=== PATIENT | male | born 1965 | race Caucasian/White ===

== ENCOUNTER 2016-03-10 16:40 | Emergency (ER) | payer OTHER ==
[2016-03-10 18:22] LABS: Hematocrit 46 % (42-52); Hemoglobin 15.6 g/dl (14.0-18.0); Mean Corpuscular HGB Conc 34 g/dl (31-36); Mean Corpuscular Hemoglobin 28 pg (27-31); Mean Corpuscular Volume 82 fL (80-94); Mean Platelet Volume 7 um3 (7.4-10.4); Red Blood Count 5.53 10^6/ul (4.0-5.4); Red Cell Distribution Width 13 % (10.5-15); White Blood Count 10.3 10^3/ul (3.5-10.8)
[2016-03-10 18:36] LABS: Albumin 4.6 g/dL (3.2-5.2); Calcium 9.4 mg/dL (8.6-10.3); EGFR African American 136.4 (>60); EGFR Non-African American 106.1 (>60); Globulin 2.7 g/dL (2-4); Potassium 4.2 mmol/L (3.5-5.0); Total Bilirubin 0.5 mg/dL (0.2-1.0); Total Protein 7.3 g/dL (6.4-8.9)
[2016-03-10 18:38] LABS: Troponin I 0.01 ng/mL (<0.04)
--- NOTE | 2016-03-10 18:50 | RAD ---
INDICATION: Chest pain. COMPARISON: Comparison is made with a prior x-ray study from November 24, 2015. TECHNIQUE: A portable view of the chest was obtained. FINDINGS: Cardiac and mediastinal contours appear to be within normal limits. The lungs are clear. No pleural effusion is seen. There is a chronic deformity in the left first 2 ribs possibly congenital or posttraumatic. This is unchanged from the prior exam. IMPRESSION: NO EVIDENCE FOR ACUTE DISEASE.
[2016-03-10] MEDS ORDERED: oxyCODONE/Acetamin 5/325 MG* TAB PO ONE (20:00)
--- NOTE | 2016-03-10 20:05 | ED ---
Ever Baxter Adam, scribed for Will Centeno MD on 03/10/16 at 1845 . HPI Chest Pain - HPI Summary HPI Summary: Pt is a 50 year old male presenting with CP. He describes it as a pinching pain in the left anterior region of his chest that radiates down his left arm. It set on 4 days ago at approximately 22:00 and it has been constant since then. Pt also c/o nausea. He saw his PCP Joel Maurice this afternoon and she sent him here. Pt has had CP in the past but it typically resolves within 1-3 hours and it has never radiated down his arm before, as it is this time. - History of Current Complaint Chief Complaint: EDChestWallPain Time Seen by Provider: 03/10/16 17:39 Hx Obtained From: Patient Onset/Duration: Started Days Ago, Atraumatic, Still Present Timing: Constant, Lasting Days Initial Severity: Moderate Current Severity: Moderate Pain Intensity: 9 Pain Scale Used: 0-10 Numeric Chest Pain Location: Left Anterior Chest Pain Radiates: Yes Chest Pain Radiates To:: Arm - Left Character: Other: - Pinching Aggravating Factor(s): Nothing Alleviating Factor(s): Nothing Associated Signs and Symptoms: Positive: Nausea - Allergy/Home Medications Allergies/Adverse Reactions: Allergies Allergy/AdvReac Type Severity Reaction Status Date / Time Sulfa Antibiotics Allergy Itching Verified 02/09/16 10:22 PMH/Surg Hx/FS Hx/Imm Hx Endocrine/Hematology History: Denies: Hx Anticoagulant Therapy, Hx Diabetes, Hx Thyroid Disease Cardiovascular History: Reports: Hx Rheumatic Fever - A CHILD Denies: Hx Congestive Heart Failure, Hx Deep Vein Thrombosis, Hx Hypertension , Hx Myocardial Infarction, Hx Pacemaker/ICD Respiratory History: Reports: Other Respiratory Problems/Disorders - HX OF PNEUMONIA 10-12 YEARS AGO Denies: Hx Asthma, Hx Chronic Obstructive Pulmonary Disease (COPD), Hx Lung Cancer, Hx Pneumonia, Hx Pulmonary Embolism GI History: Reports: Hx Gastroesophageal Reflux Disease, Other GI Disorders - DIFFICULTY SWALLOWING R/T SCAR TISSUE - NEEDS SOFT FOOD; DIVERTICULITIS Denies: Hx Gall Bladder Disease, Hx Gastrointestinal Bleed, Hx Ulcer, Hx Urosepsis History: Reports: Other Problems/Disorders - STATED PAIN IN PROSTATE AREA Denies: Hx Dialysis, Hx Kidney Stones, Hx Renal Disease Musculoskeletal History: Reports: Hx Arthritis Sensory History: Reports: Hx Contacts or Glasses - READING GLASSES Denies: Hx Hearing Aid Opthamlomology History: Reports: Hx Contacts or Glasses - READING GLASSES Neurological History: Reports: Other Neuro Impairments/Disorders - FEELING OF PRESSURE IN HEAD Denies: Hx Dementia, Hx Migraine, Hx Seizures, Hx Transient Ischemic Attacks (TIA) Psychiatric History: Reports: Hx Anxiety Denies: Hx Depression, Hx Panic Disorder, Hx Schizophrenia, Hx Bipolar Disorder - Cancer History Cancer Type, Location and Year: MELAN[facility] - Surgical History Surgery Procedure, Year, and Place: CLEFT PALATE REPAIR. 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 APPY. UMBILICAL HERNIA REPAIR Hx Anesthesia Reactions: No - Immunization History Date of Tetanus Vaccine: UTD Date of Influenza Vaccine: unk Infectious Disease History: No Infectious Disease History: Denies: Hx Clostridium Difficile, Hx Hepatitis, Hx Human Immunodeficiency Virus (HIV), Hx of Known/Suspected MRSA, Hx Shingles, Hx Tuberculosis, Hx Known/ Suspected VRE, Hx Known/Suspected VRSA, History Other Infectious Disease, Traveled Outside the [place] in Last 30 Days - Family History Known Family History: Positive: Cardiac Disease, Hypertension - Social History Occupation: Unemployed Lives: Alone Alcohol Use: None Hx Substance Use: No Substance Use Type: Reports: None Hx Tobacco Use: No Smoking Status (MU): Never Smoked Tobacco Have You Smoked in the Last Year: No Review of Systems Positive: Chest Pain Positive: Nausea Positive: Myalgia - Left arm All Other Systems Reviewed And Are Negative: Yes Physical Exam Triage Information Reviewed: Yes Vital Signs On Initial Exam: Initial Vitals Temp Pulse Resp BP Pulse Ox 97.6 F 103 24 175/115 97 03/10/16 16:42 03/10/16 16:42 03/10/16 16:42 03/10/16 16:42 03/10/16 16:42 Vital Signs Reviewed: Yes Appearance: Positive: Well-Appearing, No Pain Distress Skin: Positive: Warm, Skin Color Reflects Adequate Perfusion, Dry Head/Face: Positive: Normal Head/Face Inspection Eyes: Positive: Normal ENT: Positive: Normal ENT inspection Neck: Positive: Supple, Nontender Respiratory/Lung Sounds: Positive: Clear to Auscultation, Breath Sounds Present Cardiovascular: Positive: RRR Abdomen Description: Positive: Nontender, Soft Bowel Sounds: Positive: Present Musculoskeletal: Positive: Normal Neurological: Positive: Normal Psychiatric: Positive: Normal, Affect/Mood Appropriate Diagnostics - Vital Signs Vital Signs Temp Pulse Resp BP Pulse Ox 03/10/16 16:42 97.6 F 103 24 175/115 97 - Laboratory Lab Results: Lab Results 03/10/16 03/10/16 03/10/16 Range/Units 18:06 18:06 18:06 WBC 10.3 (3.5-10.8) 10^3/ul RBC 5.53 H (4.0-5.4) 10^6/ul Hgb 15.6 (14.0-18.0) g/dl Hct 46 (42-52) % MCV 82 (80-94) fL MCH 28 (27-31) pg MCHC 34 (31-36) g/dl RDW 13 (10.5-15) % Plt Count 269 (150-450) 10^3/ul MPV 7 L (7.4-10.4) um3 Neut % (Auto) 54.0 (38-83) % Lymph % (Auto) 25.1 (25-47) % Pettis % (Auto) 7.0 (1-9) % Eos % (Auto) 13.1 H (0-6) % Baso % (Auto) 0.8 (0-2) % Absolute Neuts (auto) 5.5 (1.5-7.7) 10^3/ul Absolute Lymphs (auto) 2.6 (1.0-4.8) 10^3/ul Absolute Monos (auto) 0.7 (0-0.8) 10^3/ul Absolute Eos (auto) 1.3 H (0-0.6) 10^3/ul Absolute Basos (auto) 0.1 (0-0.2) 10^3/ul Absolute Nucleated RBC 0.01 10^3/ul Nucleated RBC % 0.1 D-Dimer, Quantitative (Less Than 230) ng/mL Sodium 134 (133-145) mmol/L Potassium 4.2 (3.5-5.0) mmol/L Chloride 102 (101-111) mmol/L Carbon Dioxide 25 (22-32) mmol/L Anion Gap 7 (2-11) mmol/L BUN 10 (6-24) mg/dL Creatinine 0.77 (0.67-1.17) mg/dL Est GFR ( Amer) 136.4 (>60) Est GFR (Non-Af Amer) 106.1 (>60) BUN/Creatinine Ratio 13.0 (8-20) Glucose 134 H (70-100) mg/dL Lactic Acid 2.3 H* (0.5-2.0) mmol/L Calcium 9.4 (8.6-10.3) mg/dL Total Bilirubin 0.50 (0.2-1.0) mg/dL AST 22 (13-39) U/L ALT 29 (7-52) U/L Alkaline Phosphatase 60 (34-104) U/L Troponin I 0.01 (<0.04) ng/mL Total Protein 7.3 (6.4-8.9) g/dL Albumin 4.6 (3.2-5.2) g/dL Globulin 2.7 (2-4) g/dL Albumin/Globulin Ratio 1.7 (1-3) // Range/Units 18:06 WBC (3.5-10.8) 10^3/ul RBC (4.0-5.4) 10^6/ul Hgb (14.0-18.0) g/dl Hct (42-52) % MCV (80-94) fL MCH (27-31) pg MCHC (31-36) g/dl RDW (10.5-15) % Plt Count (150-450) 10^3/ul MPV (7.4-10.4) um3 Neut % (Auto) (38-83) % Lymph % (Auto) (25-47) % Pettis % (Auto) (1-9) % Eos % (Auto) (0-6) % Baso % (Auto) (0-2) % Absolute Neuts (auto) (1.5-7.7) 10^3/ul Absolute Lymphs (auto) (1.0-4.8) 10^3/ul Absolute Monos (auto) (0-0.8) 10^3/ul Absolute Eos (auto) (0-0.6) 10^3/ul Absolute Basos (auto) (0-0.2) 10^3/ul Absolute Nucleated RBC 10^3/ul Nucleated RBC % D-Dimer, Quantitative < 200 (Less Than 230) ng/mL Sodium (133-145) mmol/L Potassium (3.5-5.0) mmol/L Chloride (101-111) mmol/L Carbon Dioxide (22-32) mmol/L Anion Gap (2-11) mmol/L BUN (6-24) mg/dL Creatinine (0.67-1.17) mg/dL Est GFR ( Amer) (>60) Est GFR (Non-Af Amer) (>60) BUN/Creatinine Ratio (8-20) Glucose (70-100) mg/dL Lactic Acid (0.5-2.0) mmol/L Calcium (8.6-10.3) mg/dL Total Bilirubin (0.2-1.0) mg/dL AST (13-39) U/L ALT (7-52) U/L Alkaline Phosphatase (34-104) U/L Troponin I (<0.04) ng/mL Total Protein (6.4-8.9) g/dL Albumin (3.2-5.2) g/dL Globulin (2-4) g/dL Albumin/Globulin Ratio (1-3) Result Diagrams: 03/10/16 18:06 03/10/16 18:06 Lab Statement: Any lab studies that have been ordered have been reviewed, and results considered in the medical decision making process. - Radiology CXR Radiology Interpretation Completed By: Radiologist - IMPRESSION: NO EVIDENCE FOR ACUTE DISEASE. - EKG 16:45 Cardiac Rate: NL - 89 BPM EKG Rhythm: Sinus Rhythm - Normal - Additional Comments Diagnostic Additional Comments: Lactic Acid - 2.3 Troponin I - 0.01 Chest Pain Course/Dx - Course Course Of Treatment: Mr. Castaneda presented with a chest pain that was atypical and his W/U was negative. He has a lot of chronc pain problems and I will treat him symptomatically. - Diagnoses Provider Diagnoses: Chest wall pain Discharge - Discharge Plan Condition: Stable Disposition: HOME Prescriptions: oxyCODONE/Acetamin 5/325 MG* [Percocet 5/325 TAB*] 1 tab PO Q6H PRN #20 tab MDD 4 PRN Reason: Pain Patient Education Materials: Chest Wall Pain (ED) Referrals: Joel Maurice, ACCOUNT SERVICE ASSOCIATE [Primary Care Provider] - Additional Instructions: Follow up with Joel Maurice. The documentation as recorded by the Ever ocampo Adam accurately reflects the service I personally performed and the decisions made by me, Will Centeno MD.
[2016-03-10 20:10] VITALS: BP 157/101
== END 2016-03-10 20:09 | disposition home or self-care (01) ==
LOC: ED 16:40
DX: R07.89 Other chest pain (principal); R11.0 Nausea; M79.602 Pain in left arm
CPT/HCPCS: 36415; 71010; 80053; 83605; 84484; 85025; 85379; 93005; 99283; A9270-GY

== ENCOUNTER 2016-03-26 08:21 | Emergency (ER) | payer OTHER ==
[2016-03-26 09:08] VITALS: BP 170/104
--- NOTE | 2016-03-26 09:52 | UC ---
Respiratory Complaint HPI - HPI Summary HPI Summary: The patient comes in today for: 1. Sinus pressure: Onset: 2 days ago. Palliative/provocative: Nothing makes his pressure better or worse. Quality: Pressure. Region: Frontal and maxillary sinus areas. Severity: Time: Constant. "10/19" Associated symptoms: Rhinitis: "I can't blow my nose due to the cleft palate." NO discharge. Cough: None. Fevers: None. Upper tooth pain: Present. * - History of Current Complaint Stated Complaint: SINUS/EARS COMPLAINT Time Seen by Provider: 03/26/16 08:52 Hx Obtained From: Patient - Allergies/Home Medications Allergies/Adverse Reactions: Allergies Allergy/AdvReac Type Severity Reaction Status Date / Time Sulfa Antibiotics Allergy Itching Verified 03/26/16 08:56 Home Medications: Home Medications Duloxetine HCl 60 mg PO DAILY PRN 03/26/16 [History Confirmed 03/26/16] Ibuprofen TAB* [Advil TAB*] 600 mg PO Q6H PRN 03/26/16 [History Confirmed ] Nortriptyline CAP* [Nortriptylline CAP*] 10 mg PO BEDTIME 03/26/16 [History Confirmed 03/26/16] Pantoprazole TAB (NF) [Protonix TAB (NF)] 40 mg PO DAILY 03/26/16 [History Confirmed 03/26/16] Polyethylene Glycol 3350* [Miralax*] 17 gm PO DAILY 03/26/16 [History Confirmed 03/26/16] Pregabalin CAP(*) [Lyrica CAP(*)] 75 mg PO BID 03/26/16 [History Confirmed 03/26] [id number]-Ve W/APAP [Cold & Flu Relief ... 60-12.5-30-1000 mg/30Ml] 1 liq PO PRN 03/26/16 [History] Senna TAB* [Senokot TAB*] 1 tab PO DAILY 03/26/16 [History Confirmed 03/26/16] Tamsulosin CAP* [Flomax CAP*] 0.4 mg PO DAILY 03/26/16 [History Confirmed ] Tizanidine HCl 4 mg PO TID PRN 03/26/16 [History Confirmed 03/26/16] hydrOXYzine HCL TAB* [Atarax TAB*] 10 mg PO TID PRN 03/26/16 [History Confirmed 03/26/16] metFORMIN* [Glucophage*] 500 mg PO BID 03/26/16 [History Confirmed 03/26/16] PMH/Surg Hx/FS Hx/Imm Hx Previously Healthy: No - Neck pain, low back pain, colon polyps, melanoma tumor left eye 9 years ago Endocrine History Of: Reports: Diabetes Denies: Thyroid Disease, Hyperthyroidism, Hypothyroidism, Dyslipidemia Cardiovascular History Of: Denies: Cardiac Disorders, Hypertension, Pacemaker/ICD, Myocardial Infarction , Congestive Heart Failure, Atrial Fibrillation, Deep Vein Thrombosis, Bleeding Disorders Respiratory History Of: Denies: COPD, Asthma, Bronchitis, Pneumonia, Pulmonary Embolism GI/ History Of: Reports: Gastroesophageal Reflux, Ulcer Denies: Gastrointestinal Bleed, Gall Bladder Disease, Kidney Stones, Diverticulitis, Renal Disease, Urosepsis Neurological History Of: Denies: TIA, CVA, Dementia, Seizures, Migraine Psychological History Of: Reports: Anxiety, Post Traumatic Stress Disorder Denies: Depression, Bipolar Disorder, Schizophrenia Cancer History Of: Denies: Lung Cancer, Colorectal Cancer, Breast Cancer, Prostate Cancer, Cervical Cancer Other History Of: Negative For: HIV, Hepatitis B, Hepatitis C, Anticoagulant Therapy - Surgical History Surgical History: Yes Surgery Procedure, Year, and Place: CLEFT PALATE REPAIR. 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 APPY. UMBILICAL HERNIA REPAIR. COLONOSCOY WITH POLOP REMOVA - Family History Known Family History: Positive: Cardiac Disease, Hypertension - Social History Occupation: Unemployed Alcohol Use: None Substance Use Type: None Smoking Status (MU): Never Smoked Tobacco Have You Smoked in the Last Year: No - Immunization History Most Recent Influenza Vaccination: NEVER GETS Most Recent Tetanus Shot: UTD Review of Systems Constitutional: Negative Skin: Negative Eyes: Negative ENT: Sore Throat Respiratory: Negative Cardiovascular: Negative Gastrointestinal: Negative Genitourinary: Negative All Other Systems Reviewed And Are Negative: Yes Physical Exam Triage Information Reviewed: Yes Appearance: Well-Appearing, Well-Nourished, Pain Distress - He is slow in movement onto the exam table, but he states that this is his mindy. Vital Signs: Initial Vital Signs Temp 98.4 F 03/26/16 08:59 Pulse 102 03/26/16 08:59 Resp 20 03/26/16 08:59 BP 170/104 03/26/16 08:59 Pulse Ox 96 03/26/16 08:59 Repeat: PUlse: 100 BP: 150/100, left arm, sitting, with large cuff. Vital Signs Reviewed: Yes Eyes: Positive: Conjunctiva Clear ENT: Positive: Normal ENT inspection. Negative: Pharyngeal erythema, Nasal congestion, Nasal drainage, TM bulging, TM dull, TM red, Tonsillar swelling, Tonsillar exudate Dental: Negative: Gross Decay/Caries @, Dental Fracture @ Neck: Positive: Supple, Nontender, No Lymphadenopathy. Negative: Nuchal Rigidity Respiratory: Positive: Lungs clear, No respiratory distress, No accessory muscle use. Negative: Crackles, Wheezing Cardiovascular: Positive: RRR, No Murmur Abdomen Description: Positive: Nontender, No Organomegaly, Soft. Negative: Distended, Guarding Musculoskeletal: Positive: Strength Intact, Other: - He has some psychomotor slowing and guarding.. Negative: Edema @ Neurological: Positive: Alert, Muscle Tone Normal Psychological: Positive: Age Appropriate Behavior, Consolable Skin: Negative: rashes, breakdown UC Diagnostic Evaluation - Laboratory O2 Sat by Pulse Oximetry: 96 Respiratory Course/Dx - Differential Dx/Diagnosis Differential Diagnosis/HQI/PQRI: Bronchitis, Laryngitis, Sinusitis Provider Diagnoses: Sinusitis Discharge - Discharge Plan Condition: Stable Disposition: HOME Patient Education Materials: Sinusitis (ED) Referrals: Joel Maurice NP [Primary Care Provider] - 1 Week (Please see your primary care provider in about a week to see how well you are doing. If you get worse, please be seen sooner.)
== END 2016-03-26 10:23 | disposition home or self-care (01) ==
LOC: UCCORT 08:21
DX: J01.00 Acute maxillary sinusitis, unspecified (principal); J01.10 Acute frontal sinusitis, unspecified; Z88.2 Allergy status to sulfonamides
CPT/HCPCS: 99212; G0463

== ENCOUNTER 2016-04-09 08:58 | Emergency (ER) | payer OTHER ==
[2016-04-09] MEDS ORDERED: oxyCODONE/Acetamin 5/325 MG* TAB PO ONE (09:07)
[2016-04-09] MEDS ORDERED: Ketorolac INJ* 60 MG/2 ML VIAL IM ONE (10:56)
[2016-04-09 13:02] VITALS: BP 156/91
--- NOTE | 2016-04-19 17:52 | ED ---
marina Baxter Timothy, scribed for Román Saleem MD on 04/09/16 at 0933 . Back Pain - HPI Summary HPI Summary: Humberto Mcdowell is a 50 yo male presenting to [facility] with 10/10 back pain coming from radiology after his pain began during a CT scan. He states he injured it a long time ago, and now he is in a lot of pain. Pt states he was lying on his stomach and was getting an XR, and his back began to hurt. He is currently on an unknown medication for his back pain. He states he has not lost control of his bladder or bowels. He states he has tingling bilaterally in his lower extremities. He has been Dx with arthritis and bulged disk around his hip bones. His MHx includes rheumatic fever, arthritis, pneumonia, GERD, ulcer, diverticulitis, herniated disk in his neck, DM, anxiety, and shingles. - History of Current Complaint Stated Complaint: BACK PAIN COMMING FROM RAD Time Seen by Provider: 04/09/16 09:02 Hx Obtained From: Patient Onset/Duration: Sudden Onset, Lasting Minutes, Still Present Onset/Duration: Started Minutes Ago, Still Present Timing: Constant Back Pain Location: Is Discrete @ - lower back Severity Initially: Moderate Severity Currently: Moderate Pain Intensity: 10 Pain Scale Used: 0-10 Numeric Aggravating Symptom(s): Movement, Lifting, Bending, Walking Alleviating Symptom(s): Rest Associated Signs And Symptoms: Positive: Tingling, Pain with Weight Bearing. Negative: Abdominal Pain, Bladder Incontinence, Bowel Incontinence - Allergies/Home Medications Allergies/Adverse Reactions: Allergies Allergy/AdvReac Type Severity Reaction Status Date / Time Sulfa Antibiotics Allergy Itching Verified 03/26/16 08:56 PMH/Surg Hx/FS Hx/Imm Hx Endocrine/Hematology History: Reports: Hx Diabetes Denies: Hx Anticoagulant Therapy, Hx Thyroid Disease Cardiovascular History: Reports: Hx Rheumatic Fever - A CHILD Denies: Hx Congestive Heart Failure, Hx Deep Vein Thrombosis, Hx Hypertension , Hx Myocardial Infarction, Hx Pacemaker/ICD Respiratory History: Reports: Other Respiratory Problems/Disorders - HX OF PNEUMONIA 10-12 YEARS AGO Denies: Hx Asthma, Hx Chronic Obstructive Pulmonary Disease (COPD), Hx Lung Cancer, Hx Pneumonia, Hx Pulmonary Embolism GI History: Reports: Hx Gastroesophageal Reflux Disease, Hx Ulcer, Other GI Disorders - DIFFICULTY SWALLOWING R/T SCAR TISSUE - NEEDS SOFT FOOD; DIVERTICULITIS Denies: Hx Gall Bladder Disease, Hx Gastrointestinal Bleed, Hx Urosepsis History: Reports: Other Problems/Disorders - STATED PAIN IN PROSTATE AREA Denies: Hx Dialysis, Hx Kidney Stones, Hx Renal Disease Musculoskeletal History: Reports: Hx Arthritis Sensory History: Reports: Hx Contacts or Glasses - READING GLASSES Denies: Hx Hearing Aid Opthamlomology History: Reports: Hx Contacts or Glasses - READING GLASSES Neurological History: Reports: Other Neuro Impairments/Disorders - FEELING OF PRESSURE IN HEAD Denies: Hx Dementia, Hx Migraine, Hx Seizures, Hx Transient Ischemic Attacks (TIA) Psychiatric History: Reports: Hx Anxiety Denies: Hx Depression, Hx Panic Disorder, Hx Schizophrenia, Hx Bipolar Disorder - Cancer History Cancer Type, Location and Year: MELANOMA - Surgical History Surgery Procedure, Year, and Place: CLEFT PALATE REPAIR. 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 APPY. UMBILICAL HERNIA REPAIR. COLONOSCOY WITH POLOP REMOVA Hx Anesthesia Reactions: No - Immunization History Date of Tetanus Vaccine: UTD Date of Influenza Vaccine: unk Infectious Disease History: No Infectious Disease History: Reports: Hx Shingles Denies: Hx Clostridium Difficile, Hx Hepatitis, Hx Human Immunodeficiency Virus (HIV), Hx of Known/Suspected MRSA, Hx Tuberculosis, Hx Known/Suspected VRE , Hx Known/Suspected VRSA, History Other Infectious Disease, Traveled Outside the [place] in Last 30 Days - Family History Known Family History: Positive: Cardiac Disease, Hypertension - Social History Alcohol Use: None Hx Substance Use: No Substance Use Type: Reports: None Hx Tobacco Use: No Smoking Status (MU): Never Smoked Tobacco Have You Smoked in the Last Year: No Review of Systems Constitutional: Negative Negative: Fever, Skin Diaphoresis Eyes: Negative Negative: Other - eye redness ENT: Negative Negative: Sore Throat Cardiovascular: Negative Negative: Chest Pain Respiratory: Negative Negative: Shortness Of Breath, Cough Gastrointestinal: Negative Negative: Abdominal Pain, Vomiting, Nausea Genitourinary: Negative Negative: dysuria, hematuria, incontinence Musculoskeletal: Other - low back pain Skin: Negative Negative: Rash Positive: Paresthesia - in lower extremities Psychological: Normal All Other Systems Reviewed And Are Negative: Yes Physical Exam - Summary Physical Exam Summary: Constitutional: Well-developed, Well-nourished, Alert. (-) Distressed Skin: Warm, Dry HENT: Normocephalic; Atraumatic Eyes: Conjunctiva normal Neck: Musculoskeletal ROM normal neck. (-) JVD, (-) Stridor, (-) Tracheal deviation Cardio: Rhythm regular, rate normal, Heart sounds normal; Intact distal pulses; The pedal pulses are 2+ and symmetric. Radial pulses are 2+ and symmetric. (-) Murmur Pulmonary/Chest wall: Effort normal. (-) Respiratory distress, (-) Wheezes, (-) Rales Abd: Soft, (-) Tenderness, (-) Distension, (-) Guarding, (-) Rebound Musculoskeletal: (-) Edema. Unable to bilateral straight leg raise secondary to pain. Crying out in pain with light touches to feet. Lymph: (-) Cervical adenopathy Neuro: Alert, Oriented x3 Psych: Mood and affect Normal Triage Information Reviewed: Yes Vital Signs On Initial Exam: Initial Vitals Temp Pulse Resp BP Pulse Ox 97.7 F 89 16 159/108 98 04/09/16 09:09 04/09/16 09:09 04/09/16 09:09 04/09/16 09:09 04/09/16 09:09 Vital Signs Reviewed: Yes Diagnostics - Vital Signs Vital Signs Temp Pulse Resp BP Pulse Ox 04/09/16 09:09 97.7 F 89 16 159/108 98 - Laboratory Lab Statement: Any lab studies that have been ordered have been reviewed, and results considered in the medical decision making process. Re-Evaluation - Re-Evaluation First Eval Re-Evaluation Time: 12:52 Change: Improved Comment: Pt is ambulatory and not requesting narcotic medication for pain control. He is agreeable to be discharged. Back Pain Course/Dx - Course Assessment/Plan: Humberto Castaneda is a 50 yo male presenting to [facility] with intense lower back pain. After clinical examination, he will be discharged home with sciatica and appropriate instructions. - Diagnoses Provider Diagnoses: Sciatica Discharge - Discharge Plan Condition: Stable Disposition: HOME Patient Education Materials: Sciatica (ED) Referrals: Joel Maurice OUTBOARD TECHNICIAN [Primary Care Provider] - 2 Days Additional Instructions: Please follow up with your primary care physician regarding your visit to the emergency department today. Return to the emergency department with any new or recurring symptoms. The documentation as recorded by the marina ocampo Timothy accurately reflects the service I personally performed and the decisions made by me, Román Saleem MD.
== END 2016-04-09 13:00 | disposition home or self-care (01) ==
LOC: ED 08:58
DX: M54.30 Sciatica, unspecified side (principal); M54.9 Dorsalgia, unspecified
CPT/HCPCS: 96372; 99282; A9270-GY; J1885

== ENCOUNTER 2016-04-10 11:07 | Emergency (ER) | payer OTHER ==
--- NOTE | 2016-04-10 11:39 | UC ---
Back Pain HPI - HPI Summary HPI Summary: Long history of back and cervical disk disease, stemming from old work injury in 1999, and more recent cervical spine injury. He had an exacerbation of pain yesterday while lying on his back having a gastric emptying study done, and was assessed at [facility], discharged after pain resolved with injection of toradol and percocet. He did ok until about 5 am, and has had increasing pain in the low back since that time, along with worsening pain in the left upper chest which has previously been diagnosed as chest wall pain. He arrived her distressed and writhing with pain, near tears. Noted to be hypertensive and tachycardic, with a known history of hypertension. Oxygen saturations are ok. History is difficult to obtain due to his level of distress, grimacing and crying out. - History of Current Complaint Stated Complaint: CHEST WALL/LOWER BACK PAIN Time Seen by Provider: 04/10/16 11:32 Hx Obtained From: Patient Onset/Duration: Gradual Onset, Lasting Days - 2 Timing: Constant Severity Initially: Severe Pain Intensity: 10 Back Pain: Is Diffuse Character: Throbbing, Spasmodic Aggravating: Movement Alleviating: Nothing Associated Signs And Symptoms: Negative: Bladder Incontinence, Bowel Incontinence - Allergies/Home Medications Allergies/Adverse Reactions: Allergies Allergy/AdvReac Type Severity Reaction Status Date / Time Sulfa Antibiotics Allergy Itching Verified 03/26/16 08:56 Home Medications: Home Medications Ergocalciferol [Vitamin D2] 2,000 unit PO DAILY 04/10/16 [History Confirmed 03/28] Steroid Inhaler 2 puff PO BID 04/10/16 [History] PMH/Surg Hx/FS Hx/Imm Hx - Additional Past Medical History Additional PMH: left eye melanoma Endocrine History Of: Reports: Diabetes Denies: Thyroid Disease, Hyperthyroidism, Hypothyroidism, Dyslipidemia Cardiovascular History Of: Denies: Cardiac Disorders, Hypertension, Pacemaker/ICD, Myocardial Infarction , Congestive Heart Failure, Atrial Fibrillation, Deep Vein Thrombosis, Bleeding Disorders Respiratory History Of: Denies: COPD, Asthma, Bronchitis, Pneumonia, Pulmonary Embolism GI/ History Of: Reports: Gastroesophageal Reflux, Ulcer Denies: Gastrointestinal Bleed, Gall Bladder Disease, Kidney Stones, Diverticulitis, Renal Disease, Urosepsis Neurological History Of: Denies: TIA, CVA, Dementia, Seizures, Migraine Psychological History Of: Reports: Anxiety, Post Traumatic Stress Disorder Denies: Depression, Bipolar Disorder, Schizophrenia Cancer History Of: Denies: Lung Cancer, Colorectal Cancer, Breast Cancer, Prostate Cancer, Cervical Cancer Other History Of: Negative For: HIV, Hepatitis B, Hepatitis C, Anticoagulant Therapy - Surgical History Surgical History: Yes Surgery Procedure, Year, and Place: CLEFT PALATE REPAIR. 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 APPY. UMBILICAL HERNIA REPAIR. COLONOSCOY WITH POLOP REMOVA - Family History Known Family History: Positive: Cardiac Disease, Hypertension - Social History Occupation: Disabled Lives: With Family - lives with 8 year son, states that he has good support. Alcohol Use: None Substance Use Type: None Smoking Status (MU): Never Smoked Tobacco Have You Smoked in the Last Year: No - Immunization History Most Recent Influenza Vaccination: NEVER GETS Most Recent Tetanus Shot: UTD Review of Systems Constitutional: Fatigue Respiratory: Cough Cardiovascular: Chest Pain - compared ECG from 02/25, also tachycardic. Gastrointestinal: Other - normal gastric emptying study yesterday. Difficulty with stool passage, but when pain controlled he can pass stool. also has eosinophilic esophagitis. Psychological: Anxious All Other Systems Reviewed And Are Negative: Yes Physical Exam Triage Information Reviewed: Yes Appearance: Pain Distress - grimacing and writhing on initial assessment., Obese Eye Exam: Normal ENT: Positive: Normal ENT inspection Neck: Positive: Supple Respiratory: Positive: Lungs clear, Normal breath sounds Cardiovascular: Positive: RRR, No Murmur Abdomen Description: Positive: Soft, Distended Bowel Sounds: Positive: Present Musculoskeletal: Positive: Other: - antalgic gait. No leg weakness. Neurological: Positive: Alert, Muscle Tone Normal Psychological: Positive: Other: - anxious Skin Exam: Normal Back Pain Course/Dx - Course Course Of Treatment: uncontrolled back pain. tachycardia secondary to pain. - Differential Dx/Diagnosis Differential Diagnosis/HQI/PQRI: Cauda Equina Syndrome, Compressive Cord Syndrome, Strain Provider Diagnoses: lumbar and cervical disk disease. Chronic pain syndrome. Discharge - Discharge Plan Condition: Stable Disposition: HOME Patient Education Materials: Chronic Pain (ED) Additional Instructions: You have been given toradol and a single dose of lorazepam to help with muscle spasm. You have follow up with Joel Josafat tomorrow, and will review the events of the past several days with her. If you have further pain, please go to the emergency room, as further work up would be required.
[2016-04-10] MEDS ORDERED: Ketorolac INJ* 60 MG/2 ML VIAL IM ONE (12:18)
[2016-04-10] MEDS ORDERED: LORazepam TAB(*) 1 MG PO ONE (12:19)
[2016-04-10 13:15] VITALS: BP 175/105
== END 2016-04-10 13:28 | disposition home or self-care (01) ==
LOC: UCCORT 11:07
DX: M51.36 Other intervertebral disc degeneration, lumbar region (principal); M50.30 Other cervical disc degeneration, unspecified cervical region; G89.4 Chronic pain syndrome; Z88.2 Allergy status to sulfonamides; R00.0 Tachycardia, unspecified
CPT/HCPCS: 93005; 96372; 99212; A9270-GY; G0463; J1885

== ENCOUNTER 2016-05-10 09:37 | Emergency (ER) | payer OTHER ==
[2016-05-10 10:10] VITALS: BP 130/68
--- NOTE | 2016-05-10 10:16 | UC ---
Bite Injury/Animal HPI - HPI Summary HPI Summary: 50 male presents with complaints of a tick bite that he believes occurred yesterday when working on his car outside. Patient states he just had a physical at his primary care doctor on Thursday so he knows the tick bite occurred after that. Denies bulls eye rash, admits to some nausea and feeling achey. Patient has had many incidents of tick bites that he gets similar symptoms from. Denies any pain, neurological symptoms, arthritis, cranial nerve palsy, carditis. Admits to redness around the tick. He denies any tick bites on the rest of his body. - History of Current Complaint Chief Complaint: UCGeneralIllness Stated Complaint: TICK-LEFT SHOULDER Time Seen by Provider: 05/10/16 10:15 Hx Obtained From: Patient Severity Currently: None Pain Intensity: 0 Pain Scale Used: 0-10 Numeric Onset/Duration: Sudden Onset Type of Bite: Wild Animal - tick bite Associated Signs And Symptoms: Positive: Erythema Animal Available for Observation: Yes - Allergies/Home Medications Allergies/Adverse Reactions: Allergies Allergy/AdvReac Type Severity Reaction Status Date / Time Sulfa Antibiotics Allergy Itching Verified 05/10/16 10:00 PMH/Surg Hx/FS Hx/Imm Hx Endocrine History Of: Reports: Diabetes Denies: Thyroid Disease, Hyperthyroidism, Hypothyroidism, Dyslipidemia Cardiovascular History Of: Reports: Hypertension Denies: Cardiac Disorders, Pacemaker/ICD, Myocardial Infarction, Congestive Heart Failure, Atrial Fibrillation, Deep Vein Thrombosis, Bleeding Disorders Respiratory History Of: Denies: COPD, Asthma, Bronchitis, Pneumonia, Pulmonary Embolism GI/ History Of: Reports: Gastroesophageal Reflux, Ulcer Denies: Gastrointestinal Bleed, Gall Bladder Disease, Kidney Stones, Diverticulitis, Renal Disease, Urosepsis Neurological History Of: Denies: TIA, CVA, Dementia, Seizures, Migraine Psychological History Of: Reports: Anxiety, Post Traumatic Stress Disorder Denies: Depression, Bipolar Disorder, Schizophrenia Cancer History Of: Denies: Lung Cancer, Colorectal Cancer, Breast Cancer, Prostate Cancer, Cervical Cancer Other History Of: Negative For: HIV, Hepatitis B, Hepatitis C, Anticoagulant Therapy - Surgical History Surgical History: Yes Surgery Procedure, Year, and Place: CLEFT PALATE REPAIR. TUMOR REMOVED FROM NEXT TO THE APPENDICS (BENIGN). APPY. UMBILICAL HERNIA REPAIR. COLONOSCOY WITH POLYP REMOVAL - Family History Known Family History: Positive: Cardiac Disease, Hypertension - Social History Alcohol Use: None Substance Use Type: None Smoking Status (MU): Never Smoked Tobacco Have You Smoked in the Last Year: No - Immunization History Most Recent Influenza Vaccination: NEVER GETS Most Recent Tetanus Shot: UTD Vaccination Up to Date: Yes Review of Systems Constitutional: Negative Skin: Negative, Other - tick bite Eyes: Negative ENT: Negative Respiratory: Negative Cardiovascular: Negative Gastrointestinal: Negative Genitourinary: Negative Motor: Negative Neurovascular: Negative Musculoskeletal: Myalgia Neurological: Negative Psychological: Negative All Other Systems Reviewed And Are Negative: Yes Physical Exam Triage Information Reviewed: Yes Appearance: Well-Appearing, No Pain Distress, Well-Nourished Vital Signs: Initial Vital Signs Temp 97.7 F 05/10/16 09:52 Pulse 80 05/10/16 09:52 Resp 18 05/10/16 09:52 BP 130/68 05/10/16 09:52 Pulse Ox 97 05/10/16 09:52 Vital Signs Reviewed: Yes Eyes: Positive: Conjunctiva Clear ENT: Positive: Normal ENT inspection, Hearing grossly normal Neck: Positive: Supple, Nontender Respiratory: Positive: Chest non-tender, Lungs clear, Normal breath sounds, No respiratory distress, No accessory muscle use Cardiovascular: Positive: RRR, No Murmur, Pulses Normal, Brisk Capillary Refill Abdominal Exam: Normal Musculoskeletal: Positive: Strength Intact, ROM Intact, No Edema Neurological Exam: Normal Neurological: Positive: Alert, Muscle Tone Normal Psychological Exam: Normal Psychological: Positive: Normal Response To Family Skin: Positive: Other - tick attached to left lateral back just ouside of axilla / under left posterior shoulder. Erythemna migrans not noted. erythema is surrounding tick bite area, no edema, ecchymosis. Non-tender. tick was removed with tool without complication, no remenants after removal. Bite Injury Course/Dx - Course Course Of Treatment: tick was removed without complication. keep area clean and dry. prophylactic dose of doxy was prescribed due to patient preference and previous incidents of being treated. educated on wearing bug spray with deet and do skin checks every time he showers since he does get them often. - Differential Dx/Diagnosis Differential Diagnosis/HQI/PQRI: Cellulitis, Superficial Infection, Deep Space Infection, Other Provider Diagnoses: tick bite, left shoulder Discharge - Discharge Plan Condition: Stable Disposition: HOME Prescriptions: DOXYcycline CAP(*) [DOXYcycline 100MG CAP(*)] 200 mg PO DAILY #2 cap Patient Education Materials: Tick Bite (ED), Lyme Disease (ED) Referrals: Joel Maurice, AEROPHYSICS ENGINEER [Primary Care Provider] - Additional Instructions: Take the doxycycline as prophylaxis as soon as you get them from the pharmacy. Watch for signs of lyme disease however this is unlikely due to the length of time the tick was attached. IF you develop these symptoms please seek medical attention. Try and where bug spray with deet in it while outside to prevent future tick bites.
== END 2016-05-10 10:47 | disposition home or self-care (01) ==
LOC: UCCORT 09:37
DX: S40.262A Insect bite (nonvenomous) of left shoulder, initial encounter (principal); W57.XXXA Bitten or stung by nonvenomous insect and other nonvenomous arthropods, initial encounter; Y93.9 Activity, unspecified; Y92.9 Unspecified place or not applicable; Z88.2 Allergy status to sulfonamides
CPT/HCPCS: 99212; G0463

== ENCOUNTER 2016-06-23 12:46 | Emergency (ER) | payer OTHER ==
[2016-06-23 14:00] VITALS: BP 157/95
[2016-06-23] MEDS ORDERED: Ketorolac INJ* 30 MG/ML 1 ML VIAL IM ONE (14:11)
--- NOTE | 2016-06-23 14:22 | UC ---
Back Pain HPI - HPI Summary HPI Summary: 50 yo male with chronic low back pain due to DDD presents here stating all his joints hurt Says he has been told he had psoriatic arthritis No relief with ibuprofen states he usually responds well to toradol - History of Current Complaint Chief Complaint: UCGeneralIllness Stated Complaint: BODY JOINT PAIN Time Seen by Provider: 06/23/16 14:02 Hx Obtained From: Patient Onset/Duration: Gradual Onset, Lasting Days Timing: Constant Severity Initially: Severe Severity Currently: Severe Pain Intensity: 8 Pain Scale Used: 0-10 Numeric Back Pain: Is Diffuse Character: Dull, Aching, Throbbing Aggravating: Movement, Lifting, Bending Alleviating: Nothing - Allergies/Home Medications Allergies/Adverse Reactions: Allergies Allergy/AdvReac Type Severity Reaction Status Date / Time Sulfa Antibiotics Allergy Itching Verified 06/23/16 13:51 Home Medications: Home Medications Steroid Inhaler BID 06/23/16 [History] PMH/Surg Hx/FS Hx/Imm Hx Endocrine History Of: Reports: Diabetes - on metformin Denies: Thyroid Disease, Hyperthyroidism, Hypothyroidism, Dyslipidemia Cardiovascular History Of: Reports: Hypertension Denies: Cardiac Disorders, Pacemaker/ICD, Myocardial Infarction, Congestive Heart Failure, Atrial Fibrillation, Deep Vein Thrombosis, Bleeding Disorders Respiratory History Of: Denies: COPD, Asthma, Bronchitis, Pneumonia, Pulmonary Embolism GI/ History Of: Reports: Gastroesophageal Reflux, Ulcer Denies: Gastrointestinal Bleed, Gall Bladder Disease, Kidney Stones, Diverticulitis, Renal Disease, Urosepsis Neurological History Of: Denies: TIA, CVA, Dementia, Seizures, Migraine Psychological History Of: Reports: Anxiety, Post Traumatic Stress Disorder Denies: Depression, Bipolar Disorder, Schizophrenia Cancer History Of: Denies: Lung Cancer, Colorectal Cancer, Breast Cancer, Prostate Cancer, Cervical Cancer Other History Of: Negative For: HIV, Hepatitis B, Hepatitis C, Anticoagulant Therapy - Surgical History Surgical History: Yes Surgery Procedure, Year, and Place: CLEFT PALATE REPAIR. TUMOR REMOVED FROM NEXT TO THE APPENDICS (BENIGN). APPY. UMBILICAL HERNIA REPAIR. COLONOSCOY WITH POLYP REMOVAL - Family History Known Family History: Positive: Cardiac Disease, Hypertension, Other - [place] ( various) - Social History Alcohol Use: None Substance Use Type: Prescribed Smoking Status (MU): Never Smoked Tobacco Have You Smoked in the Last Year: No - Immunization History Most Recent Influenza Vaccination: NEVER GETS Most Recent Tetanus Shot: UTD Vaccination Up to Date: Yes Review of Systems Constitutional: Negative Skin: Negative Eyes: Negative ENT: Negative Respiratory: Negative Cardiovascular: Negative Gastrointestinal: Negative Genitourinary: Negative Motor: Negative Neurovascular: Negative Musculoskeletal: Arthralgia Neurological: Negative Psychological: Negative All Other Systems Reviewed And Are Negative: Yes Physical Exam Triage Information Reviewed: Yes Appearance: Well-Appearing, No Pain Distress, Well-Nourished Vital Signs: Initial Vital Signs Temp 98.1 F 06/23/16 13:54 Pulse 85 06/23/16 13:54 Resp 18 06/23/16 13:54 BP 157/95 06/23/16 13:54 Pulse Ox 97 06/23/16 13:54 Vital Signs Reviewed: Yes Eyes: Positive: Conjunctiva Clear ENT: Positive: Hearing grossly normal. Negative: Nasal congestion, Nasal drainage, Tonsillar exudate, Trismus Neck: Positive: Supple, Nontender, No Lymphadenopathy Respiratory: Positive: Lungs clear, Normal breath sounds, No respiratory distress, No accessory muscle use Cardiovascular: Positive: RRR, No Murmur Musculoskeletal: Positive: Other: - no red or swollen joints/decreased ROM due to pain Neurological: Positive: Alert Psychological Exam: Normal Skin: Negative: breakdown Back Pain Course/Dx - Differential Dx/Diagnosis Provider Diagnoses: arthralgias Discharge - Discharge Plan Condition: Stable Disposition: HOME Referrals: Joel Maurice NP [Primary Care Provider] -
== END 2016-06-23 14:46 | disposition home or self-care (01) ==
LOC: UCCORT 12:46
DX: M54.5 Low back pain (principal)
CPT/HCPCS: 96372; 99211; G0463; J1885

== ENCOUNTER 2016-07-23 16:47 | Emergency (ER) | payer OTHER ==
[2016-07-23 16:57] VITALS: BP 118/85
[2016-07-23] MEDS ORDERED: Ketorolac INJ* 30 MG/ML 1 ML VIAL IM ONE (17:30)
[2016-07-23] MEDS ORDERED: Ipratropium 0.5MG/2.5ML NEB* 0.5 MG/2.5 ML NEB.SOLN INH ONE (17:31)
[2016-07-23] MEDS ORDERED: Albuterol 2.5 MG/3 ML NEB.SOL* (0.083%) INH ONE (17:31)
--- NOTE | 2016-07-23 18:12 | RAD ---
INDICATION: Cough, dyspnea, one week duration. 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 COMPARISON: May 20, [address] and March 10, 2016 chest radiograph. TECHNIQUE: Dual energy PA and routine lateral views of the chest were obtained. REPORT: Mild alveolar consolidation at the periphery of the LEFT mid to lower lung zone without volume loss. Based on the lateral view this likely involves the lingula. Negative for pleural effusion. Negative for pneumothorax. The heart, pulmonary vasculature, and mediastinal contours are unremarkable. Healed fractures of the LEFT first and second ribs noted. IMPRESSION: Alveolar consolidation without volume loss in the peripheral LEFT mid to lower lung zone is most consistent with pneumonia. Radiographic follow-up after therapy warranted to assess for resolution.
--- NOTE | 2016-07-23 18:17 | UC ---
Shortness of Breath HPI - HPI Summary HPI Summary: 50 yo male with 1-2 day hx of left sided CP/cough and dyspnea Has felt feverish and had chills - History of Current Complaint Chief Complaint: UCGeneralIllness Stated Complaint: TOUBLE BREATHING-LT LUNG Time Seen by Provider: 07/23/16 17:22 Hx Obtained From: Patient Onset/Duration: Gradual Onset, Lasting Days Current Severity: Moderate Dyspnea At: Exertion Aggrevating Factors: Deep Breaths Alleviating Factors: Nothing Associated Signs & Symptoms: Positive: Cough (Productive), Fever, Chills - Allergy/Home Medications Allergies/Adverse Reactions: Allergies Allergy/AdvReac Type Severity Reaction Status Date / Time Sulfa Antibiotics Allergy Itching Verified 07/23/16 16:50 PMH/Surg Hx/FS Hx/Imm Hx Endocrine History: Diabetes, Other - RA Other Endocrine History: RA Respiratory History: Pneumonia Other History Of: Negative For: HIV, Hepatitis B, Hepatitis C, Anticoagulant Therapy - Surgical History Surgical History: Yes Surgery Procedure, Year, and Place: CLEFT PALATE REPAIR. TUMOR REMOVED FROM NEXT TO THE APPENDIX (BENIGN). APPY. UMBILICAL HERNIA REPAIR. COLONOSCOY WITH POLYP REMOVAL - Family History Known Family History: Positive: Cardiac Disease, Hypertension, Other - [place] ( various) - Social History Alcohol Use: None Substance Use Type: None Smoking Status (MU): Never Smoked Tobacco Have You Smoked in the Last Year: No - Immunization History Most Recent Influenza Vaccination: NEVER GETS Most Recent Tetanus Shot: UTD Vaccination Up to Date: Yes Review of Systems Constitutional: Fever, Chills, Fatigue Skin: Negative Eyes: Negative ENT: Negative Respiratory: Cough Cardiovascular: Chest Pain Gastrointestinal: Negative Genitourinary: Negative Motor: Negative Neurovascular: Negative Musculoskeletal: Negative Neurological: Negative Psychological: Negative All Other Systems Reviewed And Are Negative: Yes Physical Exam Triage Information Reviewed: Yes Appearance: Well-Appearing, No Pain Distress, Well-Nourished Vital Signs: Initial Vital Signs Temp 99.5 F 07/23/16 16:51 Pulse 103 07/23/16 16:51 Resp 22 07/23/16 16:51 BP 118/85 07/23/16 16:51 Pulse Ox 99 07/23/16 16:51 Vital Signs Reviewed: Yes Eyes: Positive: Conjunctiva Clear ENT: Positive: Hearing grossly normal. Negative: Nasal congestion, TMs normal, Trismus, Muffled/hoarse voice Dental: Negative: Abscess @ Neck: Positive: Supple, Nontender, No Lymphadenopathy Respiratory: Positive: No respiratory distress, No accessory muscle use, Wheezing - L>R Cardiovascular: Positive: RRR, No Murmur Abdomen Description: Positive: No Organomegaly, Soft Musculoskeletal: Positive: ROM Intact, No Edema Neurological: Positive: Alert Psychological Exam: Normal Skin Exam: Normal Shortness of Breath Dx - Differential Dx/Diagnosis Provider Diagnoses: pneumonia Discharge - Discharge Plan Condition: Improved Disposition: HOME Prescriptions: Amoxicillin/Clavulanate TAB* [Augmentin TAB 875*] 875 mg PO BID #20 tab Patient Education Materials: Pneumonia (ED) Referrals: Joel Maurice, CARE PROCESS MANAGER [Primary Care Provider] - As Soon As Possible (recheck as planned already) Additional Instructions: return for new or worsening symptoms\ you need a repeat XRAY in 2-3 weeks to make sure pneumonia has resolved
[2016-07-23] MEDS ORDERED: Albuterol HFA INHALER* 8 gm MDI INH ONE (18:19)
== END 2016-07-23 18:39 | disposition home or self-care (01) ==
LOC: UCCORT 16:47
DX: J18.9 Pneumonia, unspecified organism (principal); E11.9 Type 2 diabetes mellitus without complications; M06.9 Rheumatoid arthritis, unspecified; Z88.2 Allergy status to sulfonamides
CPT/HCPCS: 71020; 96372; 99213; A9270-GY; G0463; J1885; J7644

== ENCOUNTER 2016-07-26 12:18 | Emergency (ER) | payer OTHER ==
[2016-07-26 13:40] VITALS: BP 154/88
--- NOTE | 2016-07-26 14:00 | UC ---
Respiratory Complaint HPI - HPI Summary HPI Summary: pt is here for follow up for pneumonia that was diagnosed with on 07/23/16. Pt was given augmentin and albuterol inhaler, pt reports that he was feeling a little better 1 two days after beginning medications but reports that his dry, non productive cough and SOB has not improved and continues to feel fatigue and has back pain and muscle spasms that have exacerbated his PMH of back "problems" - History of Current Complaint Chief Complaint: UCRespiratory Stated Complaint: RE-CK PNEUMONIA, DIFFICULTY BREATHING Hx Obtained From: Patient Onset/Duration: Gradual Onset, Lasting Days Timing: Constant Severity Initially: Moderate Severity Currently: Moderate Character: Cough: Nonproductive Aggravating Factors: Exertion, Deep Breaths, Recumbent Position Alleviating Factors: Nothing Associated Signs And Symptoms: Positive: Negative - Risk Factors Pulmonary Embolism Risk Factors: Negative Cardiac Risk Factors: Negative Pseudomonas Risk Factors: Negative - Allergies/Home Medications Allergies/Adverse Reactions: Allergies Allergy/AdvReac Type Severity Reaction Status Date / Time Sulfa Antibiotics Allergy Itching Verified 07/26/16 13:53 Home Medications: Home Medications Albuterol HFA INHALER* [Ventolin HFA Inhaler*] 2 puff INH Q6H PRN 07/26/16 [ History Confirmed 07/26/16] PMH/Surg Hx/FS Hx/Imm Hx Previously Healthy: Yes Other History Of: Negative For: HIV, Hepatitis B, Hepatitis C, Anticoagulant Therapy - Surgical History Surgical History: Yes Surgery Procedure, Year, and Place: CLEFT PALATE REPAIR. TUMOR REMOVED FROM NEXT TO THE APPENDIX (BENIGN). APPY. UMBILICAL HERNIA REPAIR. COLONOSCOY WITH POLYP REMOVAL - Family History Known Family History: Positive: Cardiac Disease, Hypertension, Other - CA ( various) - Social History Lives: With Family Alcohol Use: None Substance Use Type: None Smoking Status (MU): Never Smoked Tobacco Have You Smoked in the Last Year: No - Immunization History Most Recent Influenza Vaccination: NEVER GETS Most Recent Tetanus Shot: UTD Vaccination Up to Date: Yes Review of Systems Constitutional: Fatigue Skin: Negative Eyes: Negative ENT: Negative Respiratory: Shortness Of Breath, Cough Cardiovascular: Chest Pain Gastrointestinal: Negative Genitourinary: Negative Motor: Negative Neurovascular: Negative Musculoskeletal: Negative Neurological: Headache Psychological: Negative All Other Systems Reviewed And Are Negative: Yes Physical Exam Triage Information Reviewed: Yes Appearance: Well-Appearing Vital Signs: Initial Vital Signs Temp 98.9 F 07/26/16 13:30 Pulse 80 07/26/16 13:30 Resp 24 07/26/16 13:30 BP 154/88 07/26/16 13:30 Pulse Ox 96 07/26/16 13:30 Vital Signs Reviewed: Yes ENT: Positive: Nasal congestion Neck exam: Normal Respiratory Exam: Other Respiratory: Positive: Decreased breath sounds - bilateral bases Cardiovascular Exam: Normal Musculoskeletal Exam: Normal Neurological Exam: Normal Psychological Exam: Normal Skin Exam: Normal UC Diagnostic Evaluation - Laboratory O2 Sat by Pulse Oximetry: 96 Respiratory Course/Dx - Course Course Of Treatment: Xray report: IMPRESSION: THE CONSOLIDATION DESCRIBED AT THE LATERAL LEFT LOWER LUNG ON THE JULY 23, 2016 CHEST. X-RAY APPEARS TO HAVE MOSTLY RESOLVED ON THIS CHEST X-RAY. THERE ARE NO ACUTE. CARDIOPULMONARY ABNORMALITIES. - Differential Dx/Diagnosis Differential Diagnosis/HQI/PQRI: Bronchitis, Other - back pain Provider Diagnoses: cough. Improving pneumonia Discharge - Discharge Plan Condition: Stable Disposition: HOME Prescriptions: predniSONE TAB* [Deltasone TAB*] 20 mg PO DAILY #4 tab Patient Education Materials: Acute Bronchitis (ED), Bronchospasm (ED) Referrals: Joel Maurice, SOAP TENDER [Primary Care Provider] - As Soon As Possible
[2016-07-26] MEDS ORDERED: Ketorolac INJ* 60 MG/2 ML VIAL IM ONE (14:03)
[2016-07-26] MEDS ORDERED: predniSONE TAB* 50 MG PO ONE (14:05)
[2016-07-26] MEDS ORDERED: predniSONE TAB* 20 MG PO ONE (14:20)
--- NOTE | 2016-07-26 14:30 | RAD ---
INDICATION: Worsening fever and cough COMPARISON: None TECHNIQUE: PA and lateral views of the chest were obtained. FINDINGS: The heart and mediastinum are normal in size and contour. Density seen on the July 23, 2016 chest x-ray at the lateral aspect of the left lower lobe has mostly resolved on this chest x-ray. The lungs are grossly clear. There is no evidence of large pleural effusion. Visualized bones are normal for the patient's age. There is no radiographic evidence of free air beneath the diaphragm IMPRESSION: THE CONSOLIDATION DESCRIBED AT THE LATERAL LEFT LOWER LUNG ON THE JULY 23, 2016 CHEST X-RAY APPEARS TO HAVE MOSTLY RESOLVED ON THIS CHEST X-RAY. THERE ARE NO ACUTE CARDIOPULMONARY ABNORMALITIES.
[2016-07-26] MEDS ORDERED: Levalbuterol 1.25MG/0.5ML NEB INH ONE (14:34)
[2016-07-26] MEDS ORDERED: Levalbuterol 0.63MG/3ML NEB ONE (14:51)
== END 2016-07-26 15:40 | disposition home or self-care (01) ==
LOC: UCCORT 12:18
DX: J18.9 Pneumonia, unspecified organism (principal); R05 Cough
CPT/HCPCS: 71020; 93005; 96372; 99212; A9270-GY; G0463; J1885; J7512

== ENCOUNTER 2017-01-12 16:16 | Emergency (ER) | payer OTHER ==
[2017-01-12 16:32] VITALS: BP 147/108
[2017-01-12] MEDS ORDERED: Ketorolac INJ* 60 MG/2 ML VIAL IM ONE (16:41)
--- NOTE | 2017-01-12 17:05 | UC ---
UC General HPI - HPI Summary HPI Summary: POLYARTHRITIS X 1 WEEK HX OF MULTIPLE JOINT PAIN OFF AND ON , HAS BEEN SEEN MULTIPLE TIMES FOR THIS ISSUE , NO SURE WHY AND NO KNOWN DX HAS BEEN MADE HX OF HTN, DM 2 HAS BEEN TAKING TYLENOL AND IBUPROFEN , NO HELPING REQUESTING TORADOL - History of Current Complaint Chief Complaint: UCGeneralIllness Stated Complaint: BODY PAIN Time Seen by Provider: 01/12/17 16:33 Hx Obtained From: Patient Onset/Duration: Gradual Onset, Lasting Weeks - 1 Timing: Constant Onset Severity: Severe Current Severity: Severe Pain Intensity: 8 Pain Location at: ALL THE JOINTS IN HIS BODY Pain Radiates to: NO Character: ACHY Aggravating: MOVEMENT Alleviating: NOTHING Associated Signs & Symptoms: Positive: Other - JOINT PAIN - Allergy/Home Medications Allergies/Adverse Reactions: Allergies Allergy/AdvReac Type Severity Reaction Status Date / Time Sulfa Antibiotics Allergy Itching Verified 01/12/17 16:32 PMH/Surg Hx/FS Hx/Imm Hx Endocrine History: Diabetes Cardiovascular History: Hypertension Other History Of: Negative For: HIV, Hepatitis B, Hepatitis C, Anticoagulant Therapy - Surgical History Surgical History: Yes Surgery Procedure, Year, and Place: CLEFT PALATE REPAIR. TUMOR REMOVED FROM NEXT TO THE APPENDIX (BENIGN). APPY. UMBILICAL HERNIA REPAIR. COLONOSCOY WITH POLYP REMOVAL - Family History Known Family History: Positive: Cardiac Disease, Hypertension, Other - [place] ( various) - Social History Alcohol Use: None Substance Use Type: None Smoking Status (MU): Never Smoked Tobacco Have You Smoked in the Last Year: No - Immunization History Most Recent Influenza Vaccination: [id number] Most Recent Tetanus Shot: UTD Vaccination Up to Date: Yes Review of Systems Constitutional: Negative Skin: Negative Eyes: Negative ENT: Negative Respiratory: Negative Musculoskeletal: Arthralgia, Myalgia Is Patient Immunocompromised?: No All Other Systems Reviewed And Are Negative: Yes Physical Exam Triage Information Reviewed: Yes Appearance: Ill-Appearing, Pain Distress Vital Signs: Initial Vital Signs Temp 98.3 F 01/12/17 16:23 Pulse 75 01/12/17 16:23 Resp 18 01/12/17 16:23 BP 147/108 01/12/17 16:23 Pulse Ox 97 01/12/17 16:23 Vital Signs Reviewed: Yes Eyes: Positive: Conjunctiva Clear ENT: Positive: Normal ENT inspection, Hearing grossly normal, Pharynx normal Neck: Positive: Supple, Nontender, No Lymphadenopathy Respiratory: Positive: Chest non-tender, Lungs clear, Normal breath sounds Cardiovascular: Positive: RRR, No Murmur, Pulses Normal Abdominal Exam: Normal Musculoskeletal: Positive: Other: - POLYARTHRITIS AND TENDERNESS, NO ERYTHEMA, NO SWELLING Course/Dx - Differential Dx - Multi-Symptom Provider Diagnoses: POLYARTHRITIS Discharge - Discharge Plan Condition: Stable Disposition: HOME Patient Education Materials: Osteoarthritis (ED), Self-Care Measures with a Chronic Disease (ED) Referrals: Joel Maurice BRAND ADVISOR [Primary Care Provider] - 7 Days
== END 2017-01-12 17:21 | disposition home or self-care (01) ==
LOC: UCCORT 16:16
DX: M13.0 Polyarthritis, unspecified (principal); E11.9 Type 2 diabetes mellitus without complications; I10 Essential (primary) hypertension; Z88.2 Allergy status to sulfonamides
CPT/HCPCS: 99211; G0463; J1885

== ENCOUNTER 2017-01-15 09:22 | Emergency (ER) | payer OTHER ==
[2017-01-15 09:40] VITALS: BP 165/88
--- NOTE | 2017-01-15 10:17 | UC ---
UC General HPI - HPI Summary HPI Summary: 51 year old male with pain. Pt returns from 01/12/17 visit for continuing joint inflammation; most pain is in hips, legs, spine. Pt is having PT. Pt needs to have current inflammation under control before next PT appt tomorrow. Pt requests toradol injection; last inj was 01/12/17. Has had this on and off for years and been to numerous specialists an taken all kinds of meds and only thing that helps is the toradol. no renal issues and no kidney issues. no fever. not work related per patient . [ End ] - History of Current Complaint Chief Complaint: UCGeneralIllness Stated Complaint: RE-CHECK INFLAMMATION Time Seen by Provider: 01/15/17 10:07 Hx Obtained From: Patient Onset/Duration: Gradual Onset Timing: Constant Onset Severity: Moderate Current Severity: Moderate - Allergy/Home Medications Allergies/Adverse Reactions: Allergies Allergy/AdvReac Type Severity Reaction Status Date / Time Sulfa Antibiotics Allergy Itching Verified 01/12/17 16:32 contrast media Allergy Swelling Uncoded 01/15/17 09:40 Of Face,Lips,& Throat PMH/Surg Hx/FS Hx/Imm Hx - Additional Past Medical History Additional PMH: bladder wall dysfunction. history of GI cancer. Previously Healthy: Yes Endocrine History: Diabetes, Dyslipidemia Cardiovascular History: Hypertension Psychological History: Anxiety Other History Of: Negative For: HIV, Hepatitis B, Hepatitis C, Anticoagulant Therapy - Surgical History Surgical History: Yes Surgery Procedure, Year, and Place: CLEFT PALATE REPAIR. TUMOR REMOVED FROM NEXT TO THE APPENDIX (BENIGN). APPY. UMBILICAL HERNIA REPAIR. COLONOSCOY WITH POLYP REMOVAL - Family History Known Family History: Positive: Cardiac Disease, Hypertension, Other - [place] ( various) - Social History Alcohol Use: None Substance Use Type: None Smoking Status (MU): Never Smoked Tobacco Have You Smoked in the Last Year: No - Immunization History Most Recent Influenza Vaccination: [id number] Most Recent Tetanus Shot: UTD Vaccination Up to Date: Yes Review of Systems Constitutional: Fatigue Musculoskeletal: Arthralgia, Myalgia All Other Systems Reviewed And Are Negative: Yes Physical Exam Triage Information Reviewed: Yes Appearance: Well-Appearing, Well-Nourished, Pain Distress - mild Vital Signs: Initial Vital Signs Temp 98.2 F 01/15/17 09:28 Pulse 89 01/15/17 09:28 Resp 22 01/15/17 09:28 BP 165/88 01/15/17 09:28 Vital Signs Reviewed: Yes Eye Exam: Normal ENT Exam: Normal Dental Exam: Normal Neck exam: Normal Neck: Positive: 1 Respiratory Exam: Normal Cardiovascular Exam: Normal Musculoskeletal Exam: Normal Neurological Exam: Normal Psychological Exam: Normal Skin Exam: Normal Re-Evaluation - Re-Evaluation First Eval Change: Improved Course/Dx - Course Course Of Treatment: advised to go to [facility] for follow up and further work up for this arthritis . he is aware and may look at that . - Differential Dx - Multi-Symptom Provider Diagnoses: chronic myalgias and inflammatory arthritis Discharge - Discharge Plan Condition: Good Disposition: HOME Patient Education Materials: Arthritis (ED) Referrals: Joel Maurice NP [Primary Care Provider] - 4 Days
[2017-01-15] MEDS ORDERED: Ketorolac INJ* 60 MG/2 ML VIAL IM ONE (10:27)
== END 2017-01-15 10:53 | disposition home or self-care (01) ==
LOC: UCCORT 09:22
DX: M06.4 Inflammatory polyarthropathy (principal); M79.1 Myalgia; E11.9 Type 2 diabetes mellitus without complications; I10 Essential (primary) hypertension; Z88.2 Allergy status to sulfonamides; Z91.041 Radiographic dye allergy status; Z85.00 Personal history of malignant neoplasm of unspecified digestive organ
CPT/HCPCS: 96372; 99212; G0463; J1885

== ENCOUNTER 2017-02-01 09:00 | Emergency (ER) | payer OTHER ==
[2017-02-01 09:28] VITALS: BP 144/86
--- NOTE | 2017-02-01 10:15 | UC ---
UC General HPI - HPI Summary HPI Summary: Chronic joint pain---here requesting a prn Toradol shot---has had 3 this month-- -renal function (per charted labs) are WNL - History of Current Complaint Chief Complaint: UCGeneralIllness Stated Complaint: JOINT PAIN Time Seen by Provider: 02/01/17 10:07 Hx Obtained From: Patient Onset/Duration: Gradual Onset, Lasting Days, Still Present Timing: Constant Onset Severity: Severe Current Severity: Severe Pain Intensity: 10 Pain Location at: diffuse joint pain - Allergy/Home Medications Allergies/Adverse Reactions: Allergies Allergy/AdvReac Type Severity Reaction Status Date / Time Sulfa Antibiotics Allergy Itching Verified 02/01/17 09:28 contrast media Allergy Swelling Uncoded 02/01/17 09:28 Of Face,Lips,& Throat PMH/Surg Hx/FS Hx/Imm Hx Previously Healthy: No Endocrine History: Diabetes, Dyslipidemia GI/ History: Gastroesophageal Reflux Psychological History: Anxiety Other History Of: Negative For: HIV, Hepatitis B, Hepatitis C, Anticoagulant Therapy - Surgical History Surgical History: Yes Surgery Procedure, Year, and Place: CLEFT PALATE REPAIR. TUMOR REMOVED FROM NEXT TO THE APPENDIX (BENIGN). APPY. UMBILICAL HERNIA REPAIR. COLONOSCOY WITH POLYP REMOVAL - Family History Known Family History: Positive: Cardiac Disease, Hypertension, Other - [place] ( various) - Social History Occupation: Disabled Lives: With Family Alcohol Use: None Substance Use Type: None Smoking Status (MU): Never Smoked Tobacco Have You Smoked in the Last Year: No - Immunization History Most Recent Influenza Vaccination: [id number] Most Recent Tetanus Shot: UTD Vaccination Up to Date: Yes Review of Systems Constitutional: Negative Skin: Negative Eyes: Negative ENT: Negative Respiratory: Negative Cardiovascular: Negative Gastrointestinal: Negative Genitourinary: Negative Motor: Negative Neurovascular: Negative Musculoskeletal: Arthralgia - joint pain Neurological: Negative Psychological: Negative Is Patient Immunocompromised?: No All Other Systems Reviewed And Are Negative: Yes Physical Exam Triage Information Reviewed: Yes Appearance: Well-Appearing, No Pain Distress, Well-Nourished Vital Signs: Initial Vital Signs Temp 98.4 F 02/01/17 09:22 Pulse 85 02/01/17 09:22 Resp 18 02/01/17 09:22 BP 144/86 02/01/17 09:22 Pulse Ox 97 02/01/17 09:22 Vital Signs Reviewed: Yes Eye Exam: Normal Eyes: Positive: Conjunctiva Clear ENT Exam: Normal ENT: Positive: Normal ENT inspection, Hearing grossly normal. Negative: Nasal congestion, Nasal drainage, Muffled voice, Hoarse voice Dental Exam: Normal Neck exam: Normal Neck: Positive: Supple, Nontender Respiratory Exam: Normal Respiratory: Positive: Chest non-tender, No respiratory distress, No accessory muscle use Cardiovascular Exam: Normal Cardiovascular: Positive: RRR, Pulses Normal, Brisk Capillary Refill Musculoskeletal Exam: Normal Musculoskeletal: Positive: Strength Intact, ROM Intact - to pain, No Edema, ROM Limited @ Neurological Exam: Normal Neurological: Positive: Alert, Muscle Tone Normal Psychological Exam: Normal Skin Exam: Normal Course/Dx - Course Course Of Treatment: follow blood pressure and symptoms with pcp - Differential Dx - Multi-Symptom Provider Diagnoses: Chronic pain, Elevated Blood Pressure without diagnosis of hypertension Discharge - Discharge Plan Condition: Stable Disposition: HOME Patient Education Materials: Chronic Pain (ED) Referrals: Joel Maurice NP [Primary Care Provider] - 1 Week
[2017-02-01] MEDS ORDERED: Ketorolac INJ* 30 MG/ML 1 ML VIAL IM ONE (10:20)
== END 2017-02-01 10:54 | disposition home or self-care (01) ==
LOC: UCCORT 09:00
DX: G89.29 Other chronic pain (principal); M25.50 Pain in unspecified joint; R03.0 Elevated blood-pressure reading, without diagnosis of hypertension
CPT/HCPCS: 96372; 99211; G0463; J1885

== ENCOUNTER 2017-02-09 11:48 | Emergency (ER) | payer OTHER ==
--- NOTE | 2017-02-09 12:33 | UC ---
FLU HPI - History of Current Complaint Stated Complaint: BODY PAIN Time Seen by Provider: 02/09/17 12:33 Hx Obtained From: Patient Onset/Duration: Gradual Onset, Lasting Days Severity Currently: Moderate Severity Initially: Moderate Pain Scale Used: 0-10 Numeric - 7 Associated Signs & Symptoms: Positive: Myalgia - Allergy/Home Medications Allergies/Adverse Reactions: Allergies Allergy/AdvReac Type Severity Reaction Status Date / Time Sulfa Antibiotics Allergy Itching Verified 02/09/17 12:35 contrast media Allergy Swelling Uncoded 02/09/17 12:35 Of Face,Lips,& Throat PMH/Surg Hx/FS Hx/Imm Hx Previously Healthy: Yes Other History Of: Negative For: HIV, Hepatitis B, Hepatitis C, Anticoagulant Therapy - Surgical History Surgical History: Yes Surgery Procedure, Year, and Place: CLEFT PALATE REPAIR. TUMOR REMOVED FROM NEXT TO THE APPENDIX (BENIGN). APPY. UMBILICAL HERNIA REPAIR. COLONOSCOY WITH POLYP REMOVAL - Family History Known Family History: Positive: Cardiac Disease, Hypertension, Other - [place] ( various) - Social History Alcohol Use: None Substance Use Type: None Smoking Status (MU): Never Smoked Tobacco Have You Smoked in the Last Year: No - Immunization History Most Recent Influenza Vaccination: [id number] Most Recent Tetanus Shot: UTD Vaccination Up to Date: Yes Review of Systems Constitutional: Negative Skin: Negative Eyes: Negative ENT: Negative Respiratory: Negative Cardiovascular: Negative Gastrointestinal: Negative Genitourinary: Negative Motor: Negative Neurovascular: Negative Musculoskeletal: Myalgia Neurological: Negative Psychological: Negative All Other Systems Reviewed And Are Negative: Yes Physical Exam Triage Information Reviewed: Yes Vital Signs Reviewed: Yes Eye Exam: Normal ENT Exam: Normal Dental Exam: Normal Neck exam: Normal Neck: Positive: 1 Respiratory Exam: Normal Cardiovascular Exam: Normal Abdominal Exam: Normal Musculoskeletal: Positive: Strength Limited @, ROM Limited @ Neurological Exam: Normal Psychological Exam: Normal Skin Exam: Normal Flu Course/Dx - Differential Dx/Diagnosis Provider Diagnoses: myalgia Discharge - Discharge Plan Condition: Stable Disposition: HOME Prescriptions: Methylprednisolone [Medrol Dosepak 4 MG*] 4 mg PO .SEE KIM INSTRUCTION #21 tab Patient Education Materials: Musculoskeletal Pain (ED) Referrals: Joel Maurice NP [Primary Care Provider] -
[2017-02-09] MEDS ORDERED: methylPREDNISolone 125 MG* 2 ML VIAL IM ONE (12:53)
[2017-02-09 13:34] VITALS: BP 191/110
== END 2017-02-09 13:34 | disposition home or self-care (01) ==
LOC: UCCORT 11:48
DX: M79.1 Myalgia (principal); Z88.2 Allergy status to sulfonamides; Z91.041 Radiographic dye allergy status
CPT/HCPCS: 96372; 99212; G0463; J2930

== ENCOUNTER 2017-02-11 15:54 | Emergency (ER) | payer OTHER ==
[2017-02-11 16:26] VITALS: BP 162/91
--- NOTE | 2017-02-11 16:46 | UC ---
UC General HPI - HPI Summary HPI Summary: pt her c/o body aches wishing a toradol shot - History of Current Complaint Chief Complaint: UCGeneralIllness Stated Complaint: RECHECK JOINT PAIN Time Seen by Provider: 02/11/17 16:32 Hx Obtained From: Patient Onset/Duration: Gradual Onset, Lasting Weeks, Worse Since - waxing and waneing Timing: Constant Current Severity: Severe Pain Intensity: 10 Pain Location at: general body aches - Allergy/Home Medications Allergies/Adverse Reactions: Allergies Allergy/AdvReac Type Severity Reaction Status Date / Time Sulfa Antibiotics Allergy Itching Verified 02/11/17 16:26 contrast media Allergy Swelling Uncoded 02/11/17 16:26 Of Face,Lips,& Throat PMH/Surg Hx/FS Hx/Imm Hx Previously Healthy: No - chronic pain Endocrine History: Diabetes, Dyslipidemia Cardiovascular History: Hypertension GI/ History: Gastroesophageal Reflux Psychological History: Other Other Psychological History: Head Injury Other History Of: Negative For: HIV, Hepatitis B, Hepatitis C, Anticoagulant Therapy - Surgical History Surgical History: Yes Surgery Procedure, Year, and Place: CLEFT PALATE REPAIR. TUMOR REMOVED FROM NEXT TO THE APPENDIX (BENIGN). APPY. UMBILICAL HERNIA REPAIR. COLONOSCOY WITH POLYP REMOVAL - Family History Known Family History: Positive: Cardiac Disease, Hypertension, Other - [place] ( various) - Social History Lives: With Family Alcohol Use: None Substance Use Type: None Smoking Status (MU): Never Smoked Tobacco Have You Smoked in the Last Year: No - Immunization History Most Recent Influenza Vaccination: [id number] Most Recent Tetanus Shot: UTD Vaccination Up to Date: Yes Review of Systems Constitutional: Negative Skin: Negative Eyes: Negative ENT: Negative Respiratory: Negative Cardiovascular: Negative Gastrointestinal: Negative Genitourinary: Negative Motor: Negative Neurovascular: Negative Musculoskeletal: Arthralgia, Myalgia Neurological: Negative Psychological: Negative Is Patient Immunocompromised?: No All Other Systems Reviewed And Are Negative: Yes Physical Exam Triage Information Reviewed: Yes Appearance: Well-Appearing, Well-Nourished, Pain Distress Vital Signs: Initial Vital Signs Temp 98.8 F 02/11/17 16:19 Pulse 108 02/11/17 16:19 Resp 17 02/11/17 16:19 BP 162/91 02/11/17 16:19 Pulse Ox 97 02/11/17 16:19 Vital Signs Reviewed: Yes Eye Exam: Normal Eyes: Positive: Conjunctiva Clear ENT Exam: Normal ENT: Positive: Normal ENT inspection, Hearing grossly normal, Pharynx normal. Negative: Nasal congestion, Nasal drainage, Trismus, Muffled voice, Hoarse voice , Dental tenderness, Sinus tenderness Dental Exam: Normal Neck exam: Normal Neck: Positive: Supple, Nontender, No Lymphadenopathy Respiratory Exam: Normal Respiratory: Positive: Chest non-tender, Lungs clear, Normal breath sounds, No respiratory distress, No accessory muscle use Cardiovascular Exam: Normal Cardiovascular: Positive: RRR, No Murmur, Pulses Normal, Brisk Capillary Refill Musculoskeletal Exam: Normal Musculoskeletal: Positive: Strength Intact, ROM Intact, No Edema Neurological Exam: Normal Neurological: Positive: Alert, Muscle Tone Normal Psychological Exam: Normal Skin Exam: Normal Re-Evaluation - Re-Evaluation First Eval Change: Unchanged - much support and education provided to patient regarding the non appropriate use of Tordal and the patient ial injury to his kidney-- alternate NSAIDS offerd patient accepted Mobic and will follow on Thursday with his PCP Course/Dx - Course Course Of Treatment: Education regarding chronic pain, alternate NSAID, follow with pcp - Differential Dx - Multi-Symptom Provider Diagnoses: Chronic PAin, Elevated Blood Pressure in Poor control Discharge - Discharge Plan Condition: Stable Disposition: HOME Prescriptions: Meloxicam [Mobic] 7.5 mg PO BID #20 tab Patient Education Materials: Chronic Pain (ED), Hypertension (ED) Referrals: Joel Maurice DIE STORAGE WORKER [Primary Care Provider] - As Soon As Possible
== END 2017-02-11 17:13 | disposition home or self-care (01) ==
LOC: UCCORT 15:54
DX: G89.21 Chronic pain due to trauma (principal); M79.1 Myalgia; I10 Essential (primary) hypertension; E11.9 Type 2 diabetes mellitus without complications; E78.5 Hyperlipidemia, unspecified; K21.9 Gastro-esophageal reflux disease without esophagitis; Z88.2 Allergy status to sulfonamides; Z91.041 Radiographic dye allergy status
CPT/HCPCS: 99212; G0463

== ENCOUNTER 2017-04-04 07:21 | Emergency (ER) | payer OTHER ==
--- NOTE | 2017-04-04 08:39 | UC ---
General HPI - HPI Summary HPI Summary: 51 yo gentleman c/o generalized arthralgias, progressively worse. He reports that he has been dealing with this since his mid-30's, thus far, has not had a diagnosis. However, follows closely with PCP, who has been instrumental in his care. Mr. Castaneda reports that when the pain is this bad, the only thing that helps is a ketoralac injection, and request this today. His last injection was Feb 11, 2017, here at [facility]. He was given a script for Mobic 7.5mg po bid, but reports that it didn't help that much, but willing to try it again. Recently in the last few years dx'd with DM, takes oral glycemic modulators. Denies hx stomach ulcer or kidney problems. Reports frustration with memory difficulty as a result of traumatic brain concussive injury approx 2 years ago. This too, he is following with pcp, and has been trying to find help with concussion specialists. - History of Current Complaint Stated Complaint: EXTREME INFLAMMATION Time Seen by Provider: 04/04/17 08:32 Hx Obtained From: Patient Timing: Constant Onset Severity: Moderate Current Severity: Severe - Allergy/Home Medications Allergies/Adverse Reactions: Allergies Allergy/AdvReac Type Severity Reaction Status Date / Time Sulfa (Sulfonamide Allergy Itching Verified 04/04/17 08:29 Antibiotics) contrast media Allergy Swelling Uncoded 04/04/17 08:29 Of Face,Lips,& Throat PMH/Surg Hx/FS Hx/Imm Hx Previously Healthy: No - see hpi Endocrine History: Diabetes Other History Of: Negative For: HIV, Hepatitis B, Hepatitis C, Anticoagulant Therapy - Surgical History Surgical History: Yes Surgery Procedure, Year, and Place: CLEFT PALATE REPAIR. TUMOR REMOVED FROM NEXT TO THE APPENDIX (BENIGN). APPY. UMBILICAL HERNIA REPAIR. COLONOSCOY WITH POLYP REMOVAL - Family History Known Family History: Positive: Cardiac Disease, Hypertension, Other - [place] ( various) - Social History Alcohol Use: None Substance Use Type: None Smoking Status (MU): Never Smoked Tobacco Have You Smoked in the Last Year: No - Immunization History Most Recent Influenza Vaccination: 7561-2632 Most Recent Tetanus Shot: UTD Vaccination Up to Date: Yes Review of Systems Constitutional: Fatigue - hurts to move Skin: Negative Eyes: Negative ENT: Negative Respiratory: Negative Cardiovascular: Negative Gastrointestinal: Negative Genitourinary: Negative Motor: Other - see hpi Neurovascular: Negative Musculoskeletal: Arthralgia, Myalgia Neurological: Negative Psychological: Negative Is Patient Immunocompromised?: No All Other Systems Reviewed And Are Negative: Yes Physical Exam Triage Information Reviewed: Yes Appearance: Well-Nourished - sitting up, walks slowly (appears uncomfortable). NAD. Nontoxic general appearance. Vital Signs Reviewed: Yes Eye Exam: Normal - grossly perrla, eom grossly intact. (some anisocoria?) ENT: Positive: Pharynx normal, TM dull Neck exam: Normal Neck: Positive: Supple Respiratory Exam: Normal Respiratory: Positive: Chest non-tender, Lungs clear, Normal breath sounds, No respiratory distress, No accessory muscle use Cardiovascular Exam: Normal Cardiovascular: Positive: RRR, No Murmur, Pulses Normal, Brisk Capillary Refill Abdominal Exam: Normal Bowel Sounds: Positive: Present Musculoskeletal Exam: Other - gait steady, moves all 4 ext's. C/o discomfort in "all my joints," Reports that there is not much of if any differential from distal to proximal joints, or upper vs lower joints. Neurological Exam: Normal - grossly nonfocal, but suspect chronic generalized inflammation could have a neuropathic component. Psychological Exam: Normal - conversing easily and appropriately, full sentances. Skin Exam: Normal Course/Dx - Course Course Of Treatment: Reviewed blood work as available in [facility]. Dec 2016: bun 18, creat 0.95 GFR 82.9. Hemoglobin a1c: 6.9% 02/13/17. BG today - 141mg/ dl. Feels much better s/p ketoralac injection. Smiling upon departure. Blood work ordered today (with pt request), per orders. He plans to f/u with Nesha Maurice NP next week. Rx Mobic 15mg po qd. Questions as posed answered to the best of my ability. - Differential Dx - Multi-Symptom Provider Diagnoses: Generalized progressive arthralgia Discharge - Discharge Plan Condition: Stable Disposition: HOME Prescriptions: Meloxicam [Mobic] 15 mg PO DAILY PRN #30 tablet PRN Reason: Pain Patient Education Materials: Arthralgia (ED) Referrals: Joel Maurice NP [Primary Care Provider] - Additional Instructions: Follow up with Nesha Maurice NP as scheduled. Consider seeing a Horse Rider here in [facility]. Blood tests today, see attached orders. Seek medical attention for worse or new problems.
[2017-04-04 08:43] VITALS: BP 137/82
[2017-04-04] MEDS ORDERED: Ketorolac INJ* 60 MG/2 ML VIAL IM ONE (08:54)
[2017-04-04 16:00] LABS: EGFR Non-African American 99.7 (>60)
--- NOTE | 2017-04-05 12:50 | UC ---
- Progress Note Progress Note: Seen yesterday for "extreme inflammation". Please advise that his sed rate is low at 2 and so is his crp at 2.
== END 2017-04-04 09:40 | disposition home or self-care (01) ==
LOC: UCCORT 07:21
DX: Z88.8 Allergy status to other drugs, medicaments and biological substances (principal); E11.9 Type 2 diabetes mellitus without complications; Z79.84 Long term (current) use of oral hypoglycemic drugs; Z88.2 Allergy status to sulfonamides; M25.50 Pain in unspecified joint
CPT/HCPCS: 36415; 82565; 84520; 85652; 86141; 86618; 86666; 86753; 96372; 99212; G0463; J1885

== ENCOUNTER 2017-04-20 10:01 | Emergency (ER) | payer OTHER ==
[2017-04-20 10:28] VITALS: BP 174/87
[2017-04-20] MEDS ORDERED: Fluorescein Sod TOPICAL 0.6* 0.6 MG TEST OPHTHALMIC ONE (10:37)
--- NOTE | 2017-04-20 10:43 | UC ---
Eye Complaint HPI - HPI Summary HPI Summary: PT NOTES RIGHT EYE RED AND WATERY. STATES HAS HAD CORNEAL ABRASIONS IN PAST AND THIS FEELS THE SAME. HE AWOKE WITH IT THIS AM. STATES HE OFTEN SLEEPS WITH EYES OPEN RESULTING IN THIS. 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 NO URI, COULTER OR FEVER. NO CONTACT USE AND DOES NOT WEAR GLASSES. PT DESCRIBES HIS PAIN SHARP AND FAIRLY SEVERE. - History of Current Complaint Chief Complaint: UCEye Stated Complaint: RIGHT EYE COMPLAINT Time Seen by Provider: 04/20/17 10:31 Hx Obtained From: Patient Onset/Duration: Sudden Onset Timing: Constant Pain Intensity: 7 Character: Sharp Aggravating Factor(s): Nothing Alleviating Factor(s): Nothing Related History: Diagnosed As: - ABRASIONS - Risk Factors Penetrating Injury Risk Factor: Negative Globe Rupture Risk Factors: Negative Acute Glaucoma Risk Factors: Negative - Allergies/Home Medications Allergies/Adverse Reactions: Allergies Allergy/AdvReac Type Severity Reaction Status Date / Time Sulfa (Sulfonamide Allergy Itching Verified 04/20/17 10:29 Antibiotics) contrast media Allergy Swelling Uncoded 04/20/17 10:29 Of Face,Lips,& Throat Home Medications: Home Medications ARIPiprazole TAB* [Abilify TAB*] 5 mg PO DAILY 04/20/17 [History Confirmed 01/26] Cholecalciferol TAB* [Vitamin D TAB*] 1,000 unit PO DAILY 04/20/17 [History Confirmed 04/20/17] PMH/Surg Hx/FS Hx/Imm Hx - Additional Past Medical History Additional PMH: MELANOMA OS. CORNEAL ABRASIONS Endocrine History: Diabetes, Hyperthyroidism, Dyslipidemia Other History Of: Negative For: HIV, Hepatitis B, Hepatitis C, Anticoagulant Therapy - Surgical History Surgical History: Yes Surgery Procedure, Year, and Place: CLEFT PALATE REPAIR. TUMOR REMOVED FROM NEXT TO THE APPENDIX (BENIGN). APPY. UMBILICAL HERNIA REPAIR. COLONOSCOY WITH POLYP REMOVAL - Family History Known Family History: Positive: Cardiac Disease, Hypertension, Other - [place] ( various) - Social History Alcohol Use: None Substance Use Type: None Smoking Status (MU): Never Smoked Tobacco Have You Smoked in the Last Year: No - Immunization History Most Recent Influenza Vaccination: [id number] Most Recent Tetanus Shot: UTD Vaccination Up to Date: Yes Review of Systems Constitutional: Negative Skin: Negative Eyes: Eye Redness - right plus watery ENT: Negative Respiratory: Negative Cardiovascular: Negative Gastrointestinal: Negative Genitourinary: Negative Motor: Negative Neurovascular: Negative Musculoskeletal: Negative Neurological: Negative Psychological: Negative All Other Systems Reviewed And Are Negative: Yes Physical Exam Triage Information Reviewed: Yes Appearance: Well-Appearing Vital Signs: Initial Vital Signs Temp 97.6 F 04/20/17 10:22 Pulse 87 04/20/17 10:22 Resp 18 04/20/17 10:22 BP 174/87 04/20/17 10:22 Pulse Ox 97 04/20/17 10:22 Vital Signs Reviewed: Yes Eyes: Positive: Conjunctiva Inflamed - right, Discharge - watering od. pupil os is oval (chronic from melanoma). EOMI., Other: - lid everted and no FB's od ENT: Positive: Pharynx normal, TMs normal. Negative: Nasal congestion, Nasal drainage Neck: Positive: Supple, Nontender, No Lymphadenopathy Respiratory: Positive: Lungs clear, Normal breath sounds Cardiovascular: Positive: RRR, No Murmur Abdomen Description: Positive: Nontender, No Organomegaly, Soft Bowel Sounds: Positive: Present Musculoskeletal: Positive: ROM Intact Neurological: Positive: Alert Psychological: Positive: Age Appropriate Behavior Skin Exam: Normal Skin: Positive: Other - dry scale to scalp, nasal folds and plaque R elbow. Procedures - Procedure Summary Procedure Summary: R eye stained and no abrasions, ulcerations or dendrites. globe not firm to touch. Eye Complaint Course/Dx - Course Course Of Treatment: case d/w [facility]. they will see him today at 1 :45pm. pt agrees to this appointment. - Differential Dx/Diagnosis Differential Diagnosis/HQI/PQRI: Other - no overt abrasion, fb or dendrite. pt requires opthamology exam and [facility] will see pt today at 1:45pm. Provider Diagnoses: acute right eye pain. non specific conjunctivitis od Discharge - Discharge Plan Condition: Stable Disposition: HOME Patient Education Materials: Eye Pain (ED) Referrals: Joel Maurice, MOHEL [Primary Care Provider] - If Needed Additional Instructions: FOLLOW UP WITH [facility] TODAY AT 1:45PM ARRANGED BY THIS URGENT CARE.
== END 2017-04-20 11:33 | disposition home or self-care (01) ==
LOC: UCCORT 10:01
DX: H57.11 Ocular pain, right eye (principal); H10.31 Unspecified acute conjunctivitis, right eye; E11.9 Type 2 diabetes mellitus without complications; Z79.84 Long term (current) use of oral hypoglycemic drugs; E78.5 Hyperlipidemia, unspecified; E05.90 Thyrotoxicosis, unspecified without thyrotoxic crisis or storm; Z88.2 Allergy status to sulfonamides; Z91.041 Radiographic dye allergy status
CPT/HCPCS: 99212; G0463

== ENCOUNTER 2017-06-06 07:02 | Emergency (ER) | payer OTHER ==
[2017-06-06 07:13] VITALS: BP 154/89
[2017-06-06] MEDS ORDERED: Ketorolac INJ* 60 MG/2 ML VIAL IM ONE (07:26)
--- NOTE | 2017-06-06 07:46 | ED ---
Complex/Multi-Sys Presentation - HPI Summary HPI Summary: 51 yr old male with fibromyalgia for over two decades, presents here with generalized pain, muscle and joint aches. He states the only medication that alleves his symptoms are toradol shots from time to time. last toradol three months ago. he is followed by Victor M FALK. He has an appointment next week again per the patient. No other new symptoms. - History Of Current Complaint Chief Complaint: UCGeneralIllness - Allergies/Home Medications Allergies/Adverse Reactions: Allergies Allergy/AdvReac Type Severity Reaction Status Date / Time Sulfa (Sulfonamide Allergy Itching Verified 04/20/17 10:29 Antibiotics) contrast media Allergy Swelling Uncoded 04/20/17 10:29 Of Face,Lips,& Throat PMH/Surg Hx/FS Hx/Imm Hx Endocrine/Hematology History: Reports: Hx Diabetes Denies: Hx Anticoagulant Therapy, Hx Thyroid Disease Cardiovascular History: Reports: Hx Hypertension, Hx Rheumatic Fever - A CHILD Denies: Hx Congestive Heart Failure, Hx Deep Vein Thrombosis, Hx Myocardial Infarction, Hx Pacemaker/ICD Respiratory History: Reports: Other Respiratory Problems/Disorders - HX OF PNEUMONIA 10-12 YEARS AGO Denies: Hx Asthma, Hx Chronic Obstructive Pulmonary Disease (COPD), Hx Lung Cancer, Hx Pneumonia, Hx Pulmonary Embolism GI History: Reports: Hx Gastroesophageal Reflux Disease, Hx Ulcer, Other GI Disorders - DIFFICULTY SWALLOWING R/T SCAR TISSUE - NEEDS SOFT FOOD; DIVERTICULITIS Denies: Hx Gall Bladder Disease, Hx Gastrointestinal Bleed, Hx Urosepsis History: Reports: Other Problems/Disorders - STATED PAIN IN PROSTATE AREA Denies: Hx Dialysis, Hx Kidney Stones, Hx Renal Disease Musculoskeletal History: Reports: Hx Arthritis Sensory History: Reports: Hx Contacts or Glasses - READING GLASSES Denies: Hx Hearing Aid Opthamlomology History: Reports: Hx Contacts or Glasses - READING GLASSES Neurological History: Reports: Hx Transient Ischemic Attacks (TIA), Other Neuro Impairments/Disorders - FEELING OF PRESSURE IN HEAD Denies: Hx Dementia, Hx Migraine, Hx Seizures Psychiatric History: Reports: Hx Anxiety Denies: Hx Depression, Hx Panic Disorder, Hx Schizophrenia, Hx Bipolar Disorder - Cancer History Cancer Type, Location and Year: MELANOMA in left eye. FIBROMYALGIA. DIVERTICULITIS - Surgical History Surgery Procedure, Year, and Place: CLEFT PALATE REPAIR. TUMOR REMOVED FROM NEXT TO THE APPENDIX (BENIGN). APPY. UMBILICAL HERNIA REPAIR. COLONOSCOY WITH POLYP REMOVAL Hx Anesthesia Reactions: No - Immunization History Date of Tetanus Vaccine: UTD Date of Influenza Vaccine: unk Infectious Disease History: No Infectious Disease History: Reports: Hx of Known/Suspected MRSA, Hx Shingles Denies: Hx Clostridium Difficile, Hx Hepatitis, Hx Human Immunodeficiency Virus (HIV), Hx Tuberculosis, Hx Known/Suspected VRE, Hx Known/Suspected VRSA, History Other Infectious Disease, Traveled Outside the [place] in Last 30 Days - Family History Known Family History: Positive: Cardiac Disease, Hypertension, Other - [place] ( various) - Social History Alcohol Use: None Hx Substance Use: No Substance Use Type: Reports: None Hx Tobacco Use: No Smoking Status (MU): Never Smoked Tobacco Have You Smoked in the Last Year: No Review of Systems Constitutional: Negative Respiratory: Negative Positive: Arthralgia, Myalgia All Other Systems Reviewed And Are Negative: Yes Physical Exam Triage Information Reviewed: Yes Vital Signs On Initial Exam: Initial Vitals Temp Pulse Resp BP Pulse Ox 97.6 F 95 20 154/89 97 06/06/17 07:08 06/06/17 07:08 06/06/17 07:08 06/06/17 07:08 06/06/17 07:08 Vital Signs Reviewed: Yes Appearance: Positive: Well-Appearing, Pain Distress, Obese Skin: Positive: Warm, Skin Color Reflects Adequate Perfusion Head/Face: Positive: Normal Head/Face Inspection Eyes: Positive: EOMI ENT: Positive: Normal ENT inspection, Hearing grossly normal Neck: Positive: Nontender Respiratory/Lung Sounds: Positive: Clear to Auscultation, Breath Sounds Present Cardiovascular: Positive: RRR. Negative: Murmur Abdomen Description: Positive: Nontender Musculoskeletal: Negative: Strength/ROM Intact - decreased ROM across most of his joints due to him stating he has aching. Neurological: Positive: Sensory/Motor Intact, Alert, Oriented to Person Place, Time, CN Intact II-III Psychiatric: Positive: Normal - [place] Coma Scale Best Eye Response: 4 - Spontaneous Best Motor Response: 6 - Obeys Commands Best Verbal Response: 5 - Oriented Coma Scale Total: 15 Diagnostics - Vital Signs Vital Signs Temp Pulse Resp BP Pulse Ox 06/06/17 07:08 97.6 F 95 20 154/89 97 - Laboratory Lab Statement: Any lab studies that have been ordered have been reviewed, and results considered in the medical decision making process. Complex Multi-Symp Course/Dx Course Of Treatment: 51 yr old with fibromyalgia. FU with PMD. Toradol shot given. - Diagnoses Provider Diagnoses: Fibromyalgia, Hypertension Discharge - Sign-Out/Discharge Documenting (check all that apply): Discharge/Admit/Transfer - Discharge Plan Condition: Good Disposition: HOME Patient Education Materials: Fibromyalgia (ED), Hypertension (ED) Referrals: Joel Maurice NP [Primary Care Provider] - - Billing Disposition and Condition Condition: GOOD Disposition: HOME
== END 2017-06-06 07:51 | disposition home or self-care (01) ==
LOC: UCCORT 07:02
DX: M79.7 Fibromyalgia (principal); I10 Essential (primary) hypertension; Z88.2 Allergy status to sulfonamides; Z91.041 Radiographic dye allergy status
CPT/HCPCS: 96372; 99212; G0463; J1885

== ENCOUNTER 2017-06-12 09:13 | Emergency (ER) | payer OTHER ==
[2017-06-12 10:03] VITALS: BP 147/96
[2017-06-12] MEDS ORDERED: Ketorolac INJ* 60 MG/2 ML VIAL IM ONE (11:28)
--- NOTE | 2017-06-12 11:34 | UC ---
General HPI - HPI Summary HPI Summary: PATIENT HAS HAD DECADES OF DIFFUSE CHRONIC PAIN. HE HAS NOT HAD ANY DEFINITIVE DIAGNOSIS OTHER THAN FIBROMYALGIA. HE STATES ALL TESTING HAS COME BACK NEGATIVE. STATES THE ONLY THING THAT HELPS HIS DISCOMFORT IS A TORADOL INJECTION. HE WAS SEEN HERE 06/06 FOR THE SAME SYMPTOMS AND RECEIVED AN INJECTION AT THAT TIME. HE TRIED TO SCHEDULE AN APPOINTMENT WITH HIS PCP FOR THIS WEEK BUT SHE IS ON VACATION SO HE IS RETURNING HERE REQUESTING ANOTHER TORADOL INJECTION. HE HAS NOT TAKEN ANY OTHER AND STATES TODAY. PATIENT IS VISIBLY UNCOMFORTABLE THE ROOM. HE STATES THE PAIN WAS SO BAD TODAY HE HAD TO HAVE HIS SON ASSIST HIM IN DRESSING HIMSELF. - History of Current Complaint Chief Complaint: UCGeneralIllness Stated Complaint: BODY PAIN Time Seen by Provider: 06/12/17 11:16 Hx Obtained From: Patient Onset/Duration: Gradual Onset, Lasting Days, Still Present Timing: Constant Onset Severity: Severe Current Severity: Severe Pain Intensity: 10 - Allergy/Home Medications Allergies/Adverse Reactions: Allergies Allergy/AdvReac Type Severity Reaction Status Date / Time Iodinated Contrast- Oral and Allergy Swelling Verified 06/12/17 10:00 IV Dye Of Face,Lips,& Throat Sulfa (Sulfonamide Allergy Itching Verified 06/12/17 10:00 Antibiotics) PMH/Surg Hx/FS Hx/Imm Hx - Additional Past Medical History Additional PMH: FIBROMYALGIA Endocrine History: Diabetes Cardiovascular History: Hypertension Other Cancer History: MELANOMA Other History Of: Negative For: HIV, Hepatitis B, Hepatitis C, Anticoagulant Therapy - Surgical History Surgical History: Yes Surgery Procedure, Year, and Place: CLEFT PALATE REPAIR. TUMOR REMOVED FROM NEXT TO THE APPENDIX (BENIGN). APPY. UMBILICAL HERNIA REPAIR. COLONOSCOY WITH POLYP REMOVAL - Family History Known Family History: Positive: Cardiac Disease, Hypertension, Other - [place] ( various) - Social History Alcohol Use: None Substance Use Type: None Smoking Status (MU): Never Smoked Tobacco Have You Smoked in the Last Year: No - Immunization History Most Recent Influenza Vaccination: 9324-0411 Most Recent Tetanus Shot: 07/18/14 Vaccination Up to Date: Yes Review of Systems Constitutional: Negative Skin: Negative Respiratory: Negative Cardiovascular: Negative Gastrointestinal: Negative Musculoskeletal: Arthralgia, Decreased ROM All Other Systems Reviewed And Are Negative: Yes Physical Exam Triage Information Reviewed: Yes Appearance: Well-Nourished, Pain Distress - MOD Vital Signs: Initial Vital Signs Temp 99.4 F 06/12/17 09:58 Pulse 104 06/12/17 09:58 Resp 34 06/12/17 09:58 BP 147/96 06/12/17 09:58 Pulse Ox 97 06/12/17 09:58 Vital Signs Reviewed: Yes Eyes: Positive: Conjunctiva Clear ENT: Positive: Hearing grossly normal Neck: Positive: Supple Respiratory: Positive: No respiratory distress, No accessory muscle use Cardiovascular: Positive: Pulses Normal Abdomen Description: Positive: Soft Musculoskeletal: Positive: No Edema, ROM Limited @ - DIFFUSELY Neurological: Positive: Alert Psychological: Positive: Age Appropriate Behavior Skin: Negative: rashes Course/Dx - Differential Dx - Multi-Symptom Provider Diagnoses: DIFFUSE CHRONIC PAIN Discharge - Sign-Out/Discharge Documenting (check all that apply): Discharge/Admit/Transfer - Discharge Plan Condition: Stable Disposition: HOME Patient Education Materials: Chronic Pain (ED) Referrals: Joel Maurice LENS GRINDER AND POLISHER [Primary Care Provider] - 1 Week Additional Instructions: YOU RECEIVED AN INJECTION OF 60 MG TORADOL TODAY. FOLLOW-UP WITH YOUR PCP FOR FURTHER TREATMENT. - Billing Disposition and Condition Condition: STABLE Disposition: HOME
== END 2017-06-12 11:46 | disposition home or self-care (01) ==
LOC: UCCORT 09:13
DX: G89.29 Other chronic pain (principal); R52 Pain, unspecified; Z88.2 Allergy status to sulfonamides; Z91.041 Radiographic dye allergy status
CPT/HCPCS: 96372; 99212; G0463; J1885

== ENCOUNTER 2017-07-08 15:49 | Emergency (ER) | payer OTHER ==
[2017-07-08] MEDS ORDERED: DOXYcycline CAP(*) 100 MG PO ONE (16:31)
[2017-07-08] MEDS ORDERED: Ketorolac INJ* 60 MG/2 ML VIAL IM ONE (16:31)
--- NOTE | 2017-07-08 16:39 | ED ---
Complex/Multi-Sys Presentation - HPI Summary HPI Summary: 51 yr old male with the complaint of generalized body pain, aching. He saw his psychiatrist yesterday and was told he should get another toradol shot. The patient has gotten prior toradol shots for his fibromyalgia and has had improvement. The patient also state he got bitten by a tick, and immediately felt hot, dizzy and brief palpitations that went away. Took Benadryl. felt all better. He has felt fine today. He pulled tick off from the back of his neck yesterday. - History Of Current Complaint Chief Complaint: UCGeneralIllness Time Seen by Provider: 07/08/17 16:24 - Allergies/Home Medications Allergies/Adverse Reactions: Allergies Allergy/AdvReac Type Severity Reaction Status Date / Time Iodinated Contrast- Oral and Allergy Swelling Verified 07/08/17 15:58 IV Dye Of Face,Lips,& Throat Sulfa (Sulfonamide Allergy Itching Verified 07/08/17 15:58 Antibiotics) Home Medications: Home Medications Amitriptyline TAB* [Elavil TAB*] 25 mg PO BEDTIME 07/08/17 [History Confirmed ] glipiZIDE [Glipizide ER] 10 mg PO DAILY 07/08/17 [History Confirmed 07/08/17] PMH/Surg Hx/FS Hx/Imm Hx Endocrine/Hematology History: Reports: Hx Diabetes Denies: Hx Anticoagulant Therapy, Hx Thyroid Disease Cardiovascular History: Reports: Hx Hypertension, Hx Rheumatic Fever - A CHILD Denies: Hx Congestive Heart Failure, Hx Deep Vein Thrombosis, Hx Myocardial Infarction, Hx Pacemaker/ICD Respiratory History: Reports: Other Respiratory Problems/Disorders - HX OF PNEUMONIA 10-12 YEARS AGO Denies: Hx Asthma, Hx Chronic Obstructive Pulmonary Disease (COPD), Hx Lung Cancer, Hx Pneumonia, Hx Pulmonary Embolism GI History: Reports: Hx Gastroesophageal Reflux Disease, Hx Ulcer, Other GI Disorders - DIFFICULTY SWALLOWING R/T SCAR TISSUE - NEEDS SOFT FOOD; DIVERTICULITIS Denies: Hx Gall Bladder Disease, Hx Gastrointestinal Bleed, Hx Urosepsis History: Reports: Other Problems/Disorders - STATED PAIN IN PROSTATE AREA Denies: Hx Dialysis, Hx Kidney Stones, Hx Renal Disease Musculoskeletal History: Reports: Hx Arthritis Sensory History: Reports: Hx Contacts or Glasses - READING GLASSES Opthamlomology History: Reports: Hx Contacts or Glasses - READING GLASSES Neurological History: Reports: Hx Transient Ischemic Attacks (TIA), Other Neuro Impairments/Disorders - FEELING OF PRESSURE IN HEAD Denies: Hx Dementia, Hx Migraine, Hx Seizures Psychiatric History: Reports: Hx Anxiety Denies: Hx Depression, Hx Panic Disorder, Hx Schizophrenia, Hx Bipolar Disorder - Cancer History Cancer Type, 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 TUMOR REMOVED FROM NEXT TO THE APPENDIX (BENIGN). APPY. UMBILICAL HERNIA REPAIR. COLONOSCOY WITH POLYP REMOVAL Hx Anesthesia Reactions: No - Immunization History Date of Tetanus Vaccine: UTD Date of Influenza Vaccine: unk Infectious Disease History: Yes Infectious Disease History: Reports: Hx of Known/Suspected MRSA, Hx Shingles Denies: Hx Clostridium Difficile, Hx Hepatitis, Hx Human Immunodeficiency Virus (HIV), Hx Tuberculosis, Hx Known/Suspected VRE, Hx Known/Suspected VRSA, History Other Infectious Disease, Traveled Outside the [place] in Last 30 Days - Family History Known Family History: Positive: Cardiac Disease, Hypertension, Other - [place] ( various) - Social History Alcohol Use: None Hx Substance Use: No Substance Use Type: Reports: None Hx Tobacco Use: No Smoking Status (MU): Never Smoked Tobacco Have You Smoked in the Last Year: No Review of Systems Positive: Myalgia - all over, and chronic condition Positive: Other - tick bite All Other Systems Reviewed And Are Negative: Yes Physical Exam Triage Information Reviewed: Yes Vital Signs On Initial Exam: Initial Vitals Temp Pulse Resp BP Pulse Ox 97.6 F 100 18 154/109 96 07/08/17 16:04 07/08/17 16:04 07/08/17 16:04 07/08/17 16:04 07/08/17 16:04 Vital Signs Reviewed: Yes Appearance: Positive: Well-Appearing, No Pain Distress Skin: Positive: Other - no david on back of neck from tick bite Head/Face: Positive: Normal Head/Face Inspection Neck: Positive: Supple, Nontender Respiratory/Lung Sounds: Positive: Clear to Auscultation, Breath Sounds Present Cardiovascular: Positive: RRR. Negative: Murmur Abdomen Description: Positive: Nontender Musculoskeletal: Positive: Strength/ROM Intact Neurological: Positive: Sensory/Motor Intact, Alert, Oriented to Person Place, Time, CN Intact II-III Psychiatric: Positive: Normal - [place] Coma Scale Best Eye Response: 4 - Spontaneous Best Motor Response: 6 - Obeys Commands Best Verbal Response: 5 - Oriented Coma Scale Total: 15 Diagnostics - Vital Signs Vital Signs Temp Pulse Resp BP Pulse Ox 07/08/17 16:04 97.6 F 100 18 154/109 96 - Laboratory Lab Statement: Any lab studies that have been ordered have been reviewed, and results considered in the medical decision making process. Complex Multi-Symp Course/Dx - Diagnoses Provider Diagnoses: Tick bite, Hypertension, Fibromyalgia Discharge - Sign-Out/Discharge Documenting (check all that apply): Discharge/Admit/Transfer - Discharge Plan Condition: Good Disposition: HOME Patient Education Materials: Tick Bite (ED), Fibromyalgia (ED), Hypertension ( ED) Referrals: Joel Maurice [employer]ZARD[employer]STANCES ENGINEER [Primary Care Provider] - 2 Days - Billing Disposition and Condition Condition: GOOD Disposition: HOME
[2017-07-08 17:01] VITALS: BP 162/101
== END 2017-07-08 17:05 | disposition home or self-care (01) ==
LOC: UCCORT 15:49
DX: S10.86XA Insect bite of other specified part of neck, initial encounter (principal); W57.XXXA Bitten or stung by nonvenomous insect and other nonvenomous arthropods, initial encounter; Y93.9 Activity, unspecified; Y92.89 Other specified places as the place of occurrence of the external cause; I10 Essential (primary) hypertension; M79.7 Fibromyalgia; Z88.1 Allergy status to other antibiotic agents; Z91.041 Radiographic dye allergy status; E11.9 Type 2 diabetes mellitus without complications; Z79.84 Long term (current) use of oral hypoglycemic drugs; F41.9 Anxiety disorder, unspecified
CPT/HCPCS: 96372; 99212; A9270-GY; G0463; J1885

== ENCOUNTER 2017-07-28 09:25 | Emergency (ER) | payer OTHER ==
[2017-07-28 09:53] VITALS: BP 164/96
[2017-07-28] MEDS ORDERED: Ketorolac INJ* 60 MG/2 ML VIAL IM ONE (10:27)
--- NOTE | 2017-07-28 10:43 | UC ---
UC General HPI - HPI Summary HPI Summary: pain all over x 3 days sever body / joint pain for years , worse over the past 3 days, here for Toradol shot that helps him a lot no fever, no chills - History of Current Complaint Chief Complaint: UCGeneralIllness Stated Complaint: PAIN EVERYWHERE Time Seen by Provider: 07/28/17 10:25 Hx Obtained From: Patient Onset/Duration: Gradual Onset, Lasting Days - 3, Still Present Onset Severity: Moderate Current Severity: Severe Pain Intensity: 10 Associated Signs & Symptoms: Positive: Back Pain, Weakness. Negative: Agitation , Abdominal Pain, Anticoagulation Therapy, Confusion, Cough, Chest Pain, Decreased Responsiveness, Dizziness, Dysuria, Decreased Oral Intake, Diaphoresis , Edema, Fever, Headache, Hematemesis, Hemoptysis, Immunocompromised, In- Dwelling Medication Device, Melena, Nausea, Palpitations, Recent Medication Changes, Syncope, SOB, Trauma, Vomiting, Wheezing - Allergy/Home Medications Allergies/Adverse Reactions: Allergies Allergy/AdvReac Type Severity Reaction Status Date / Time Iodinated Contrast- Oral and Allergy Swelling Verified 07/08/17 15:58 IV Dye Of Face,Lips,& Throat Sulfa (Sulfonamide Allergy Itching Verified 07/08/17 15:58 Antibiotics) PMH/Surg Hx/FS Hx/Imm Hx Endocrine History: Diabetes Cardiovascular History: Hypertension Other History Of: Negative For: HIV, Hepatitis B, Hepatitis C, Anticoagulant Therapy - Surgical History Surgical History: Yes Surgery Procedure, Year, and Place: CLEFT PALATE REPAIR. TUMOR REMOVED FROM NEXT TO THE APPENDIX (BENIGN). APPY. UMBILICAL HERNIA REPAIR. COLONOSCOY WITH POLYP REMOVAL - Family History Known Family History: Positive: Cardiac Disease, Hypertension, Other - CA ( various) - Social History Alcohol Use: None Substance Use Type: None Smoking Status (MU): Never Smoked Tobacco Have You Smoked in the Last Year: No - Immunization History Most Recent Influenza Vaccination: 7689-9482 Most Recent Tetanus Shot: 07/18/14 Vaccination Up to Date: Yes Review of Systems Constitutional: Negative Skin: Negative Eyes: Negative ENT: Negative Respiratory: Negative Musculoskeletal: Arthralgia, Myalgia Neurological: Weakness Is Patient Immunocompromised?: No All Other Systems Reviewed And Are Negative: Yes Physical Exam Triage Information Reviewed: Yes Appearance: Pain Distress, Obese Vital Signs: Initial Vital Signs Temp 98.5 F 07/28/17 09:48 Pulse 88 07/28/17 09:48 Resp 18 07/28/17 09:48 BP 164/96 07/28/17 09:48 Pulse Ox 97 07/28/17 09:48 Vital Signs Reviewed: Yes Eyes: Positive: Conjunctiva Clear ENT: Positive: Normal ENT inspection, Hearing grossly normal, Pharynx normal Neck exam: Normal Neck: Positive: Supple, Nontender, No Lymphadenopathy Respiratory: Positive: Chest non-tender, Lungs clear, Normal breath sounds Cardiovascular: Positive: RRR, No Murmur, Pulses Normal Abdominal Exam: Normal Abdomen Description: Positive: Nontender, Soft Musculoskeletal: Positive: No Edema, Strength Limited @, ROM Limited @ Neurological Exam: Normal Neurological: Positive: Alert Skin Exam: Normal Course/Dx - Differential Dx - Multi-Symptom Provider Diagnoses: polyarthritis Discharge - Sign-Out/Discharge Documenting (check all that apply): Discharge/Admit/Transfer - Discharge Plan Condition: Stable Disposition: HOME Patient Education Materials: Musculoskeletal Pain (ED) Referrals: Joel Maurice WATCH CRYSTAL CUTTER [Primary Care Provider] - 7 Days - Billing Disposition and Condition Condition: STABLE Disposition: Home
== END 2017-07-28 10:59 | disposition home or self-care (01) ==
LOC: UCCORT 09:25
DX: I88.9 Nonspecific lymphadenitis, unspecified (principal); Z88.2 Allergy status to sulfonamides; Z91.041 Radiographic dye allergy status; I10 Essential (primary) hypertension; E11.9 Type 2 diabetes mellitus without complications
CPT/HCPCS: 96372; 99212; G0463; J1885

== ENCOUNTER 2017-08-03 07:57 | Emergency (ER) | payer OTHER ==
[2017-08-03 08:20] VITALS: BP 124/80
[2017-08-03] MEDS ORDERED: Ketorolac INJ* 30 MG/ML 1 ML VIAL IM ONE (08:40)
--- NOTE | 2017-08-03 08:53 | UC ---
Back Pain HPI - HPI Summary HPI Summary: The patient is a 51-year-old male with gradually worsening joint pain over the past week. His pain is described as being 10 out of 10. States that for the past 20-30 years he has had intermittent severe joint pains. He states his pain should respond well to a shot of Toradol. He states he has had multiple rheumatological tests done in the past and in fact has seen a hog slaughterer and not received a diagnosis of his joint pains. He states he has been told he has fibromyalgia. In the past 6 months he has developed a rash over his right knee and right elbow that he has told is psoriasis. - History of Current Complaint Chief Complaint: UCGeneralIllness Stated Complaint: JOINT PAIN - BODY Time Seen by Provider: 08/03/17 08:29 Hx Obtained From: Patient Onset/Duration: Gradual Onset Timing: Constant, Lasting Weeks - yrs Severity Initially: Moderate Severity Currently: Severe Pain Intensity: 10 Pain Scale Used: 0-10 Numeric Back Pain: Is Diffuse Character: Aching, Throbbing, Spasmodic, Stiffness Aggravating Factor(s): Movement, Bending, Walking Alleviating Factor(s): Rest, Other - toradol Associated Signs And Symptoms: Positive: Pain with Weight Bearing - Allergies/Home Medications Allergies/Adverse Reactions: Allergies Allergy/AdvReac Type Severity Reaction Status Date / Time Iodinated Contrast- Oral and Allergy Swelling Verified 08/03/17 08:10 IV Dye Of Face,Lips,& Throat Sulfa (Sulfonamide Allergy Itching Verified 08/03/17 08:10 Antibiotics) Home Medications: Home Medications Ciprofloxacin TAB* [Cipro 500 MG TAB*] 500 mg PO BID 08/03/17 [History Confirmed 08/03/17] Meloxicam [Mobic] 15 mg PO DAILY 08/03/17 [History Confirmed 08/03/17] oxyCODONE/Acetam5/325MG PREPAK [Percocet 5/325 TAB*] 0.5 tab PO DAILY PRN [History Confirmed 08/03/17] PMH/Surg Hx/FS Hx/Imm Hx Endocrine History: Diabetes, Dyslipidemia Respiratory History: Asthma GI/ History: Ulcer Other History Of: Negative For: HIV, Hepatitis B, Hepatitis C, Anticoagulant Therapy - Surgical History Surgical History: Yes Surgery Procedure, Year, and Place: CLEFT PALATE REPAIR. TUMOR REMOVED FROM NEXT TO THE APPENDIX (BENIGN). APPY. UMBILICAL HERNIA REPAIR. COLONOSCOY WITH POLYP REMOVAL - Family History Known Family History: Positive: Cardiac Disease, Hypertension, Other - [place] ( various) - Social History Alcohol Use: None Substance Use Type: Prescribed Smoking Status (MU): Never Smoked Tobacco Have You Smoked in the Last Year: No - Immunization History Most Recent Influenza Vaccination: [id number] Most Recent Tetanus Shot: 07/18/14 Vaccination Up to Date: Yes Review of Systems Constitutional: Negative Skin: Rash Eyes: Negative ENT: Negative Respiratory: Negative Cardiovascular: Negative Gastrointestinal: Negative Genitourinary: Negative Motor: Negative Neurovascular: Negative Musculoskeletal: Arthralgia Neurological: Negative Psychological: Negative Is Patient Immunocompromised?: No All Other Systems Reviewed And Are Negative: Yes Physical Exam Triage Information Reviewed: Yes Appearance: Well-Appearing, Well-Nourished, Pain Distress Vital Signs: Initial Vital Signs Temp 97.4 F 08/03/17 08:14 Pulse 81 08/03/17 08:14 Resp 18 08/03/17 08:14 BP 124/80 08/03/17 08:14 Pulse Ox 96 08/03/17 08:14 Eyes: Positive: Conjunctiva Clear ENT: Positive: Hearing grossly normal. Negative: Nasal congestion, Nasal drainage, Trismus, Muffled voice, Hoarse voice Neck: Positive: Supple, Nontender Respiratory: Positive: Lungs clear, Normal breath sounds, No respiratory distress, No accessory muscle use Cardiovascular: Positive: RRR, No Murmur Musculoskeletal: Positive: Other: - no joint swlling or erthyema Neurological: Positive: Alert Psychological Exam: Normal Skin: Positive: rashes - c/w psoriasis on right elbow and right knee Back Pain Course/Dx - Differential Dx/Diagnosis Provider Diagnoses: joint pains of uncertain cause. query psoriatic arthritis Discharge - Sign-Out/Discharge Documenting (check all that apply): Discharge/Admit/Transfer - Discharge Plan Condition: Stable Disposition: HOME Patient Education Materials: Arthralgia (ED) Referrals: Humberto Frazier MD [Medical Doctor] - As Soon As Possible (Ask for first available appt ...it will probably won't be until Oct ) Additional Instructions: I think in light of you psoriasis that you have psoriatic arthritis I suggest you see your provider in follow up to see if she can initiate a rheumatological work up (again) - Billing Disposition and Condition Condition: STABLE Disposition: Home
== END 2017-08-03 09:09 | disposition home or self-care (01) ==
LOC: UCCORT 07:57
DX: M25.50 Pain in unspecified joint (principal)
CPT/HCPCS: 96372; 99212; G0463; J1885

== ENCOUNTER 2017-08-17 10:45 | Emergency (ER) | payer OTHER ==
[2017-08-17 11:02] VITALS: BP 153/104
[2017-08-17] MEDS ORDERED: Ketorolac INJ* 60 MG/2 ML VIAL IM ONE (11:44)
--- NOTE | 2017-08-17 11:47 | ED ---
Skin Complaint - HPI Summary HPI Summary: 51 yr old with generalized muscle and joint aches. He comes here for Toradol shots which he tolerates well and which he feels help him. He also complains of red rash as well to the left medial ankle area which he feels is shingles. Has had shingles before. No other complaints. - History of Current Complaint Chief Complaint: UCGeneralIllness Time Seen by Provider: 08/17/17 11:37 Stated Complaint: SKIN COMPLAINT/PAIN EVERYWHERE Pain Intensity: 10 - Allergy/Home Medications Allergies/Adverse Reactions: Allergies Allergy/AdvReac Type Severity Reaction Status Date / Time Iodinated Contrast- Oral and Allergy Swelling Verified 08/17/17 10:56 IV Dye Of Face,Lips,& Throat Sulfa (Sulfonamide Allergy Itching Verified 08/17/17 10:56 Antibiotics) PMH/Surg Hx/FS Hx/Imm Hx Endocrine/Hematology History: Reports: Hx Diabetes Denies: Hx Anticoagulant Therapy, Hx Thyroid Disease Cardiovascular History: Reports: Hx Hypertension, Hx Rheumatic Fever - A CHILD Denies: Hx Congestive Heart Failure, Hx Deep Vein Thrombosis, Hx Myocardial Infarction, Hx Pacemaker/ICD Respiratory History: Reports: Other Respiratory Problems/Disorders - HX OF PNEUMONIA 10-12 YEARS AGO Denies: Hx Asthma, Hx Chronic Obstructive Pulmonary Disease (COPD), Hx Lung Cancer, Hx Pneumonia, Hx Pulmonary Embolism GI History: Reports: Hx Gastroesophageal Reflux Disease, Hx Ulcer, Other GI Disorders - DIFFICULTY SWALLOWING R/T SCAR TISSUE - NEEDS SOFT FOOD; DIVERTICULITIS Denies: Hx Gall Bladder Disease, Hx Gastrointestinal Bleed, Hx Urosepsis History: Reports: Other Problems/Disorders - STATED PAIN IN PROSTATE AREA Denies: Hx Dialysis, Hx Kidney Stones, Hx Renal Disease Musculoskeletal History: Reports: Hx Arthritis Sensory History: Reports: Hx Contacts or Glasses - READING GLASSES Opthamlomology History: Reports: Hx Contacts or Glasses - READING GLASSES Neurological History: Reports: Hx Transient Ischemic Attacks (TIA), Other Neuro Impairments/Disorders - FEELING OF PRESSURE IN HEAD Denies: Hx Dementia, Hx Migraine, Hx Seizures Psychiatric History: Reports: Hx Anxiety Denies: Hx Depression, Hx Panic Disorder, Hx Schizophrenia, Hx Bipolar Disorder - Cancer History Cancer Type, 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 TUMOR REMOVED FROM NEXT TO THE APPENDIX (BENIGN). APPY. UMBILICAL HERNIA REPAIR. COLONOSCOY WITH POLYP REMOVAL Hx Anesthesia Reactions: No - Immunization History Date of Tetanus Vaccine: UTD Date of Influenza Vaccine: unk Infectious Disease History: No Infectious Disease History: Reports: Hx of Known/Suspected MRSA - POSS, Hx Shingles Denies: Hx Clostridium Difficile, Hx Hepatitis, Hx Human Immunodeficiency Virus (HIV), Hx Tuberculosis, Hx Known/Suspected VRE, Hx Known/Suspected VRSA, History Other Infectious Disease, Traveled Outside the [place] in Last 30 Days - Family History Known Family History: Positive: Cardiac Disease, Hypertension, Other - [place] ( various) - Social History Alcohol Use: None Hx Substance Use: No Substance Use Type: Reports: Prescribed Hx Tobacco Use: No Smoking Status (MU): Never Smoked Tobacco Have You Smoked in the Last Year: No Review of Systems Constitutional: Negative Positive: Myalgia Positive: Rash All Other Systems Reviewed And Are Negative: Yes Physical Exam Triage Information Reviewed: Yes Vital Signs On Initial Exam: Initial Vitals Temp Pulse Resp BP Pulse Ox 98.1 F 84 18 153/104 97 08/17/17 10:58 08/17/17 10:58 08/17/17 10:58 08/17/17 10:58 08/17/17 10:58 Vital Signs Reviewed: Yes Appearance: Positive: Well-Appearing, No Pain Distress Skin: Positive: Other - scant red rash medial left ankle. No cellulitis. No STS to the leg or the ankle. Head/Face: Positive: Normal Head/Face Inspection Eyes: Positive: EOMI ENT: Positive: Normal ENT inspection Neck: Positive: Nontender Respiratory/Lung Sounds: Positive: Clear to Auscultation, Breath Sounds Present Cardiovascular: Positive: RRR. Negative: Murmur Abdomen Description: Positive: Nontender Musculoskeletal: Positive: Strength/ROM Intact Neurological: Positive: Sensory/Motor Intact, Alert, Oriented to Person Place, Time, CN Intact II-III Psychiatric: Positive: Normal - Pratibha Coma Scale Best Eye Response: 4 - Spontaneous Best Motor Response: 6 - Obeys Commands Best Verbal Response: 5 - Oriented Coma Scale Total: 15 Diagnostics - Vital Signs Vital Signs Temp Pulse Resp BP Pulse Ox 08/17/17 10:58 98.1 F 84 18 153/104 97 - Laboratory Lab Statement: Any lab studies that have been ordered have been reviewed, and results considered in the medical decision making process. Course/Dx - Course Course Of Treatment: 51 yr old with polymyalgia history and pain, and also possible shingles. Rx Valtrex. Toradol shot given per request. - Diagnoses Provider Diagnoses: Polymyalgia, Shingles Discharge - Sign-Out/Discharge Documenting (check all that apply): Discharge/Admit/Transfer - Discharge Plan Condition: Good Disposition: HOME Prescriptions: ValACYclovir (*) [Valtrex 1 GM(*)] 1 gm PO TID #21 tab Patient Education Materials: Shingles (ED), Hypertension (ED), Polymyalgia Rheumatica (ED) Referrals: Joel Maurice TACK PULLER [Primary Care Provider] - 2 Days - Billing Disposition and Condition Condition: GOOD Disposition: Home
== END 2017-08-17 12:12 | disposition home or self-care (01) ==
LOC: UCCORT 10:45
DX: M35.3 Polymyalgia rheumatica (principal); B02.9 Zoster without complications; Z88.2 Allergy status to sulfonamides; Z91.041 Radiographic dye allergy status; E11.9 Type 2 diabetes mellitus without complications; I10 Essential (primary) hypertension
CPT/HCPCS: 96372; 99212; G0463; J1885

== ENCOUNTER 2017-08-21 16:49 | Emergency (ER) | payer OTHER ==
[2017-08-21 17:40] VITALS: BP 168/100
--- NOTE | 2017-08-21 18:20 | UC ---
UC General HPI - HPI Summary HPI Summary: confused with medications, wanted help with sorting them out and ensuring that they are correct medications - History of Current Complaint Chief Complaint: UCGeneralIllness Stated Complaint: HELP WITH MEDICATIONS Time Seen by Provider: 08/21/17 18:15 Hx Obtained From: Patient Pain Intensity: 0 - Allergy/Home Medications Allergies/Adverse Reactions: Allergies Allergy/AdvReac Type Severity Reaction Status Date / Time Iodinated Contrast- Oral and Allergy Swelling Verified 08/21/17 17:22 IV Dye Of Face,Lips,& Throat Sulfa (Sulfonamide Allergy Itching Verified 08/21/17 17:22 Antibiotics) PMH/Surg Hx/FS Hx/Imm Hx Previously Healthy: Yes Endocrine History: Diabetes Cardiovascular History: Hypertension Psychological History: Anxiety, Depression Other History Of: Negative For: HIV, Hepatitis B, Hepatitis C, Anticoagulant Therapy - Surgical History Surgical History: Yes Surgery Procedure, Year, and Place: CLEFT PALATE REPAIR. TUMOR REMOVED FROM NEXT TO THE APPENDIX (BENIGN). APPY. UMBILICAL HERNIA REPAIR. COLONOSCOY WITH POLYP REMOVAL - Family History Known Family History: Positive: Cardiac Disease, Hypertension, Other - [place] ( various) - Social History Alcohol Use: None Substance Use Type: Prescribed Smoking Status (MU): Never Smoked Tobacco Have You Smoked in the Last Year: No - Immunization History Most Recent Influenza Vaccination: [id number] Most Recent Tetanus Shot: 07/18/14 Vaccination Up to Date: Yes Review of Systems Constitutional: Negative Skin: Negative Eyes: Negative ENT: Negative Respiratory: Negative Cardiovascular: Negative Gastrointestinal: Negative Genitourinary: Negative Motor: Negative Neurovascular: Negative Musculoskeletal: Negative Neurological: Negative Psychological: Negative All Other Systems Reviewed And Are Negative: Yes Physical Exam Triage Information Reviewed: Yes Appearance: Well-Appearing Vital Signs: Initial Vital Signs Temp 36.4 C 08/21/17 17:27 Pulse 92 08/21/17 17:27 Resp 26 08/21/17 17:27 BP 168/100 08/21/17 17:27 Pulse Ox 95 08/21/17 17:27 Vital Signs Reviewed: Yes Eye Exam: Normal ENT Exam: Normal Neck exam: Normal Respiratory Exam: Normal Course/Dx - Course Course Of Treatment: polypharmacy with confusion as to his medications. medications reviewed, everything is correct for the next several days - Differential Dx - Multi-Symptom Provider Diagnoses: polypharmacy with anxiety regarding his medications Discharge - Sign-Out/Discharge Documenting (check all that apply): Patient Departure - Discharge Plan Condition: Good Disposition: HOME Referrals: Joel Maurice CATHETER FINISHER AND INSPECTOR [Primary Care Provider] - - Billing Disposition and Condition Condition: GOOD Disposition: Home
== END 2017-08-21 18:26 | disposition home or self-care (01) ==
LOC: UCCORT 16:49
DX: F41.8 Other specified anxiety disorders (principal); I10 Essential (primary) hypertension; E11.9 Type 2 diabetes mellitus without complications; Z91.041 Radiographic dye allergy status; Z88.2 Allergy status to sulfonamides
CPT/HCPCS: 99211; G0463

== ENCOUNTER 2017-08-28 15:40 | Emergency (ER) | payer OTHER ==
[2017-08-28 15:58] VITALS: BP 164/98
[2017-08-28] MEDS ORDERED: Ketorolac INJ* 60 MG/2 ML VIAL IM ONE (16:25)
--- NOTE | 2017-08-28 16:33 | UC ---
UC General HPI - HPI Summary HPI Summary: chronic pain for years worse over the past 2 days here for Toradol injection, has pain all over, all his joint are in pain no fever, no chills - History of Current Complaint Chief Complaint: UCGeneralIllness Stated Complaint: BODY PAIN Time Seen by Provider: 08/28/17 16:24 Hx Obtained From: Patient Onset/Duration: Gradual Onset, Lasting Days - 2, Still Present Timing: Constant Onset Severity: Severe Current Severity: Severe Pain Intensity: 10 Associated Signs & Symptoms: Positive: Back Pain, Weakness. Negative: Agitation , Abdominal Pain, Anticoagulation Therapy, Confusion, Cough, Chest Pain, Dizziness, Edema, Headache, SOB - Allergy/Home Medications Allergies/Adverse Reactions: Allergies Allergy/AdvReac Type Severity Reaction Status Date / Time Iodinated Contrast- Oral and Allergy Swelling Verified 08/28/17 15:58 IV Dye Of Face,Lips,& Throat Sulfa (Sulfonamide Allergy Itching Verified 08/28/17 15:58 Antibiotics) Home Medications: Home Medications Cholecalciferol TAB* [Vitamin D TAB*] 1,000 unit PO DAILY 08/28/17 [History Confirmed 08/28/17] Diazepam (ANTICONVULSANT)(*) [Diastat Acudial(*)] 5 mg [place] DAILY PRN 08/28/17 [ History Confirmed 08/28/17] Hydrocortisone 2.5% CREAM(NF) 1 applic TOPICAL DAILY PRN 08/28/17 [History Confirmed 08/28/17] Ketorolac 0.5% OPHTH (NF) 1 drop RIGHT EYE QID PRN 08/28/17 [History Confirmed 08/28/17] Nystatin CREAM* 1 applic TOPICAL TID 08/28/17 [History Confirmed 08/28/17] PMH/Surg Hx/FS Hx/Imm Hx - Additional Past Medical History Additional PMH: melanoma Endocrine History: Diabetes Cardiovascular History: Hypertension GI/ History: Gastroesophageal Reflux, Ulcer Other History Of: Negative For: HIV, Hepatitis B, Hepatitis C, Anticoagulant Therapy - Surgical History Surgical History: Yes Surgery Procedure, Year, and Place: CLEFT PALATE REPAIR. TUMOR REMOVED FROM NEXT TO THE APPENDIX (BENIGN). APPY. UMBILICAL HERNIA REPAIR. COLONOSCOY WITH POLYP REMOVAL - Family History Known Family History: Positive: Cardiac Disease, Hypertension, Other - [place] ( various) - Social History Alcohol Use: None Substance Use Type: Prescribed Smoking Status (MU): Never Smoked Tobacco Have You Smoked in the Last Year: No - Immunization History Most Recent Influenza Vaccination: 9678-9291 Most Recent Tetanus Shot: 07/18/14 Vaccination Up to Date: Yes Review of Systems Constitutional: Fatigue Skin: Negative Eyes: Negative ENT: Negative Respiratory: Negative Musculoskeletal: Arthralgia, Myalgia Is Patient Immunocompromised?: No All Other Systems Reviewed And Are Negative: Yes Physical Exam Triage Information Reviewed: Yes Appearance: Pain Distress, Obese Vital Signs: Initial Vital Signs Temp 97.8 F 08/28/17 15:52 Pulse 89 08/28/17 15:52 Resp 18 08/28/17 15:52 BP 164/98 08/28/17 15:52 Pulse Ox 99 08/28/17 15:52 Vital Signs Reviewed: Yes Eyes: Positive: Conjunctiva Clear ENT: Positive: Normal ENT inspection, Hearing grossly normal, Pharynx normal Neck: Positive: Supple, Nontender, No Lymphadenopathy Respiratory: Positive: Chest non-tender, Lungs clear, Normal breath sounds Cardiovascular: Positive: RRR, No Murmur, Pulses Normal Abdominal Exam: Normal Musculoskeletal: Positive: No Edema, Strength Limited @, ROM Limited @. Negative: Edema @ Neurological: Positive: Alert Course/Dx - Differential Dx - Multi-Symptom Provider Diagnoses: chronic pain Discharge - Sign-Out/Discharge Documenting (check all that apply): Patient Departure - Discharge Plan Condition: Stable Disposition: HOME Patient Education Materials: Chronic Pain (ED) Referrals: Joel Maurice INTERLOCKER [Primary Care Provider] - 7 Days - Billing Disposition and Condition Condition: STABLE Disposition: Home
== END 2017-08-28 16:56 | disposition home or self-care (01) ==
LOC: UCCORT 15:40
DX: G89.29 Other chronic pain (principal); Z88.2 Allergy status to sulfonamides; Z91.041 Radiographic dye allergy status
CPT/HCPCS: 96372; 99212; G0463; J1885

== ENCOUNTER 2017-09-09 07:05 | Emergency (ER) | payer OTHER ==
[2017-09-09] MEDS ORDERED: Ketorolac INJ* 60 MG/2 ML VIAL IM ONE (07:13)
[2017-09-09 07:25] VITALS: BP 160/89
--- NOTE | 2017-09-09 07:43 | ED ---
Medical Screening - HPI Summary HPI Summary: 51 yr old with long standing history of fibromyalgia, and with generalized body pain. Sent in by his psychiatrist for a toradol shot. No other new complaints. No fever, chills, and he does not feel sick. The patient is requesting a toradol shot. - History of Current Complaint Chief Complaint: UCBackPain Stated Complaint: PAIN EVERYWHERE Time Seen by Provider: 09/09/17 07:07 PMH/Surg Hx/FS Hx/Imm Hx Endocrine/Hematology History: Reports: Hx Diabetes Denies: Hx Anticoagulant Therapy, Hx Thyroid Disease Cardiovascular History: Reports: Hx Hypertension, Hx Rheumatic Fever - A CHILD Denies: Hx Congestive Heart Failure, Hx Deep Vein Thrombosis, Hx Myocardial Infarction, Hx Pacemaker/ICD Respiratory History: Reports: Other Respiratory Problems/Disorders - HX OF PNEUMONIA 10-12 YEARS AGO Denies: Hx Asthma, Hx Chronic Obstructive Pulmonary Disease (COPD), Hx Lung Cancer, Hx Pneumonia, Hx Pulmonary Embolism GI History: Reports: Hx Gastroesophageal Reflux Disease, Hx Ulcer, Other GI Disorders - DIFFICULTY SWALLOWING R/T SCAR TISSUE - NEEDS SOFT FOOD; DIVERTICULITIS Denies: Hx Gall Bladder Disease, Hx Gastrointestinal Bleed, Hx Urosepsis History: Reports: Other Problems/Disorders - STATED PAIN IN PROSTATE AREA Denies: Hx Dialysis, Hx Kidney Stones, Hx Renal Disease Musculoskeletal History: Reports: Hx Arthritis Sensory History: Reports: Hx Contacts or Glasses - READING GLASSES Opthamlomology History: Reports: Hx Contacts or Glasses - READING GLASSES Neurological History: Reports: Hx Transient Ischemic Attacks (TIA), Other Neuro Impairments/Disorders - FEELING OF PRESSURE IN HEAD Denies: Hx Dementia, Hx Migraine, Hx Seizures Psychiatric History: Reports: Hx Anxiety Denies: Hx Depression, Hx Panic Disorder, Hx Schizophrenia, Hx Bipolar Disorder - Cancer History Cancer Type, 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 TUMOR REMOVED FROM NEXT TO THE APPENDIX (BENIGN). APPY. UMBILICAL HERNIA REPAIR. COLONOSCOY WITH POLYP REMOVAL Hx Anesthesia Reactions: No - Immunization History Date of Tetanus Vaccine: UTD Date of Influenza Vaccine: unk Infectious Disease History: Yes Infectious Disease History: Reports: Hx of Known/Suspected MRSA - POSS, Hx Shingles Denies: Hx Clostridium Difficile, Hx Hepatitis, Hx Human Immunodeficiency Virus (HIV), Hx Tuberculosis, Hx Known/Suspected VRE, Hx Known/Suspected VRSA, History Other Infectious Disease, Traveled Outside the [place] in Last 30 Days - Family History Known Family History: Positive: Cardiac Disease, Hypertension, Other - [place] ( various) - Social History Alcohol Use: None Hx Substance Use: No Substance Use Type: Reports: Prescribed Hx Tobacco Use: No Smoking Status (MU): Never Smoked Tobacco Have You Smoked in the Last Year: No Review of Systems Constitutional: Negative Positive: Myalgia All Other Systems Reviewed And Are Negative: Yes Physical Exam Triage Information Reviewed: Yes Vital Signs On Initial Exam: Initial Vitals Temp Pulse Resp BP Pulse Ox 99.5 F 88 20 160/89 98 09/09/17 07:17 09/09/17 07:17 09/09/17 07:17 09/09/17 07:17 09/09/17 07:17 Vital Signs Reviewed: Yes Appearance: Positive: Well-Appearing, No Pain Distress Skin: Positive: Warm, Skin Color Reflects Adequate Perfusion Head/Face: Positive: Normal Head/Face Inspection Eyes: Positive: EOMI ENT: Positive: Normal ENT inspection Respiratory/Lung Sounds: Positive: Clear to Auscultation, Breath Sounds Present Cardiovascular: Positive: RRR. Negative: Murmur Abdomen Description: Positive: Nontender Musculoskeletal: Positive: Strength/ROM Intact Neurological: Positive: Sensory/Motor Intact, Alert, Oriented to Person Place, Time, CN Intact II-III Psychiatric: Positive: Normal - [place] Coma Scale Best Eye Response: 4 - Spontaneous Best Motor Response: 6 - Obeys Commands Best Verbal Response: 5 - Oriented Coma Scale Total: 15 Diagnostics - Vital Signs Vital Signs Temp Pulse Resp BP Pulse Ox 09/09/17 07:17 99.5 F 88 20 160/89 98 - Laboratory Lab Statement: Any lab studies that have been ordered have been reviewed, and results considered in the medical decision making process. Course/Dx - Course Course Of Treatment: fibromyalgia, requests a shot of toradol, toradol given, dc home fu with pmd and psych. - Diagnoses Provider Diagnoses: Fibromyalgia, Polymyalgia Discharge - Sign-Out/Discharge Documenting (check all that apply): Patient Departure - Discharge Plan Condition: Good Disposition: HOME Patient Education Materials: Polymyalgia Rheumatica (ED) Referrals: Joel Maurice NP [Primary Care Provider] - - Billing Disposition and Condition Condition: GOOD Disposition: Home
== END 2017-09-09 07:57 | disposition home or self-care (01) ==
LOC: UCCORT 07:05
DX: M35.3 Polymyalgia rheumatica (principal); M79.7 Fibromyalgia; E11.9 Type 2 diabetes mellitus without complications; I10 Essential (primary) hypertension; Z85.820 Personal history of malignant melanoma of skin
CPT/HCPCS: 96372; 99212; G0463; J1885

== ENCOUNTER 2017-09-18 14:43 | Emergency (ER) | payer OTHER ==
[2017-09-18 15:14] VITALS: BP 145/98
--- NOTE | 2017-09-18 16:30 | UC ---
General HPI - HPI Summary HPI Summary: 51 y/o male presents to the urgent care c/o pt with a long standing hx of fibromyalgia. He comes here today for an injection of toradol. He was seen by his PCP on 09/09/17 and has another appt. scheduled for 09/22/17. PCP refuses to provide pt with toradol as frequently as he requests and so he chooses to come here. - History of Current Complaint Chief Complaint: UCGeneralIllness Stated Complaint: BODY PAINS Hx Obtained From: Patient Pain Intensity: 10 - Allergy/Home Medications Allergies/Adverse Reactions: Allergies Allergy/AdvReac Type Severity Reaction Status Date / Time Iodinated Contrast- Oral and Allergy Swelling Verified 09/09/17 07:26 IV Dye Of Face,Lips,& Throat Sulfa (Sulfonamide Allergy Itching Verified 09/09/17 07:26 Antibiotics) PMH/Surg Hx/FS Hx/Imm Hx Other History Of: Negative For: HIV, Hepatitis B, Hepatitis C, Anticoagulant Therapy - Surgical History Surgical History: Yes Surgery Procedure, Year, and Place: CLEFT PALATE REPAIR. TUMOR REMOVED FROM NEXT TO THE APPENDIX (BENIGN). APPY. UMBILICAL HERNIA REPAIR. COLONOSCOY WITH POLYP REMOVAL - Family History Known Family History: Positive: Cardiac Disease, Hypertension, Other - [place] ( various) - Social History Alcohol Use: None Substance Use Type: Prescribed Smoking Status (MU): Never Smoked Tobacco Have You Smoked in the Last Year: No - Immunization History Most Recent Influenza Vaccination: 6436-8442 Most Recent Tetanus Shot: 07/18/14 Vaccination Up to Date: Yes Physical Exam - Summary Physical Exam Summary: VITAL SIGNS: Reviewed. GENERAL: Patient is a well developed and nourished obese male who is sitting comfortable in the examining table. Patient is not in any acute respiratory distress. HEAD AND FACE: No signs of trauma. No ecchymosis, hematomas or skull depressions. No sinus tenderness. EYES: PERRLA, EOMI x 2, No injected conjunctiva, no nystagmus. No photophobia. EARS: Hearing grossly intact. Ear canals and tympanic membranes are within normal limits. Nose: edematous and erythematous nasal mucosa w/ clear nasal discharge. MOUTH: Positive no erythema, no tonsillar enlargement. Uvula in midline. NECK: Supple, trachea is midline, Positive anterior cervical lymphadenopathy, no JVD, no carotid bruit, no c-spine tenderness, neck with full ROM. No meningeal signs, no Kernig's or brudzinskis signs. CHEST: Symmetric, no tenderness at palpation LUNGS: Clear to auscultation bilaterally. No wheezing or crackles. CVS: Regular rate and rhythm, S1 and S2 present, no murmurs or gallops appreciated. ABDOMEN: Soft, non-tender. No signs of distention. No rebound no guarding, and no masses palpated. Bowel sounds are normal. EXTREMITIES: FROM in all major joints, no edema, no cyanosis or clubbing. NEURO: Alert and oriented x 3. No acute neurological deficits. Speech is normal and follows commands. SKIN: Dry and warm Triage Information Reviewed: Yes Vital Signs: Initial Vital Signs Temp 98.4 F 09/18/17 15:04 Pulse 94 09/18/17 15:04 Resp 16 09/18/17 15:04 BP 145/98 09/18/17 15:04 Pulse Ox 97 09/18/17 15:04 Course/Dx - Differential Dx - Multi-Symptom Provider Diagnoses: 1- Musculoskeletal pain. 2- Fibromyalgia. 3-Uncontrolled HTN Discharge - Discharge Plan Condition: Stable Disposition: HOME Patient Education Materials: Fibromyalgia (ED), Musculoskeletal Pain (ED), Low- Sodium Diet (ED) Referrals: [facility] [Provider Group] - 3 Days Joel Maurice, PHOTO MACHINE OPERATOR [Primary Care Provider] - 2 Days Additional Instructions: 1-Please Continue taking Meloxicam PO as directed by your PCP to alleviate pain and swelling. You were given Toradol IM inj today for your musculoskelatal pain. However you should f/u with your PCP DR Maldonado for further management and see how is your kidney function, and your DM type II. PLease f/u w/ your referal w/ Rhematologist appt on 11/21/2017 for further management on your Fibromyalgia. 2- Please f/u with Orthopedic DR from sports Medicine referral for further managment in your Musculoskelal pain for further evaluation and treatment. 3-Your BP is elevated today. please decrease salt in your diet, monitor BP and if it continues to be elevated please f/u with your PCP for further management - Billing Disposition and Condition Condition: STABLE Disposition: Home
[2017-09-18] MEDS ORDERED: Ketorolac INJ* 30 MG/ML 1 ML VIAL IM ONE (16:59)
== END 2017-09-18 17:16 | disposition home or self-care (01) ==
LOC: UCCORT 14:43
DX: M79.1 Myalgia (principal); M79.7 Fibromyalgia; I10 Essential (primary) hypertension; Z88.1 Allergy status to other antibiotic agents
CPT/HCPCS: 96372; 99212; G0463; J1885

== ENCOUNTER 2017-10-30 09:23 | Emergency (ER) | payer OTHER ==
[2017-10-30 10:29] VITALS: BP 157/86
[2017-10-30] MEDS ORDERED: Ketorolac INJ* 30 MG/ML 1 ML VIAL IM ONE (11:19)
--- NOTE | 2017-10-30 11:20 | UC ---
UC General HPI - HPI Summary HPI Summary: Pt presents with exacerbation of his fibromyalgia body pain Pt states has been getting worse over the past week. Home medications have note been helping. No fever, chills, rash. No cp,sob. Pt states pain similar to past exacerbations. Scheduled to see a translational specialist first week of Nov. In past, Toradol has treated pain pts medications reviewed this visit - History of Current Complaint Chief Complaint: UCGeneralIllness Stated Complaint: BODY ACHES Time Seen by Provider: 10/30/17 10:59 Hx Obtained From: Patient Onset Severity: Moderate Current Severity: Severe Pain Intensity: 10 - Allergy/Home Medications Allergies/Adverse Reactions: Allergies Allergy/AdvReac Type Severity Reaction Status Date / Time Iodinated Contrast- Oral and Allergy Swelling Verified 10/30/17 10:20 IV Dye Of Face,Lips,& Throat Sulfa (Sulfonamide Allergy Itching Verified 10/30/17 10:20 Antibiotics) PMH/Surg Hx/FS Hx/Imm Hx Previously Healthy: Yes - fibromylagia Other History Of: Negative For: HIV, Hepatitis B, Hepatitis C, Anticoagulant Therapy - Surgical History Surgical History: Yes Surgery Procedure, Year, and Place: CLEFT PALATE REPAIR. TUMOR REMOVED FROM NEXT TO THE APPENDIX (BENIGN). APPY. UMBILICAL HERNIA REPAIR. COLONOSCOY WITH POLYP REMOVAL - Family History Known Family History: Positive: Cardiac Disease, Hypertension, Other - [place] ( various) - Social History Alcohol Use: None Substance Use Type: Prescribed Smoking Status (MU): Never Smoked Tobacco Have You Smoked in the Last Year: No - Immunization History Most Recent Influenza Vaccination: [id number] Most Recent Tetanus Shot: 07/18/14 Vaccination Up to Date: Yes Review of Systems Constitutional: Other - body aches All Other Systems Reviewed And Are Negative: Yes Physical Exam - Summary Physical Exam Summary: Vital Signs Reviewed: Yes A+Ox3, mild discomfort Eyes: Conjunctiva Clear, SANCHEZ. EOM intact and full ENT: Hearing grossly normal TM x 2 clear, mmoist, uvula midline, no exudate, no erythema Neck: Positive: Supple Respiratory: Positive: No respiratory distress, No accessory muscle use + CTA throughout no w/r Cardiovascular: RRR nl s1, s2 no m/r CBT <2 sec abd soft + BS nt/nd no guarding, no distension Musculoskeletal Exam: BURNETT x 4 without difficulty Strength Intact, ROM Intact Neurological: Positive: Alert, + sensation throughout Psychological: Positive: Normal Response To Family Skin: Positive: no rash, no ecchymosis Triage Information Reviewed: Yes Vital Signs: Initial Vital Signs Temp 97.8 F 10/30/17 10:24 Pulse 71 10/30/17 10:24 Resp 18 10/30/17 10:24 BP 157/86 10/30/17 10:24 Pulse Ox 97 10/30/17 10:24 Re-Evaluation - Re-Evaluation First Eval Comment: pt reports toradol"starting to kick in" and would like to go home Course/Dx - Course Course Of Treatment: Pt presents with exacerbation of body wide fibromyalgia pain. Pt states has an appt with rhumatology in 2 weeks. pt withelevated bp - recommend pcp f/u. Pt appears mild disicomfort with walking,but otherwise nonfocal exam. will give toradol, reassess - Differential Dx - Multi-Symptom Provider Diagnoses: acute exacerbation of chornic pain Discharge - Sign-Out/Discharge Documenting (check all that apply): Patient Departure All imaging exams completed and their final reports reviewed: No Studies - Discharge Plan Condition: Stable Disposition: HOME Patient Education Materials: Fibromyalgia (ED), Chronic Pain (ED) Referrals: Joel Maurice UR COORDINATOR [Primary Care Provider] - Additional Instructions: - Take your medications as previously as prescribed - Keep your appointment as prescribed with your translational specialist - contact your doctor, return here, or go to the emergency department with questions or concerns - Billing Disposition and Condition Condition: STABLE Disposition: Home
== END 2017-10-30 11:40 | disposition home or self-care (01) ==
LOC: UCCORT 09:23
DX: M79.7 Fibromyalgia (principal); Z88.2 Allergy status to sulfonamides; Z91.041 Radiographic dye allergy status
CPT/HCPCS: 96372; 99212; G0463; J1885

== ENCOUNTER 2017-11-19 15:52 | Emergency (ER) | payer OTHER ==
[2017-11-19 16:09] VITALS: BP 128/94
[2017-11-19] MEDS ORDERED: Ketorolac INJ* 60 MG/2 ML VIAL IM ONE (16:17)
--- NOTE | 2017-11-19 16:26 | ED ---
Complex/Multi-Sys Presentation - HPI Summary HPI Summary: 52 yr old male with the complaint of body aches and pains diffusely. He has a history of fibromyalgia and presents here for his toradol shot. His last shot was a couple of weeks ago. Denies fever, chills. No new features. - History Of Current Complaint Chief Complaint: UCGeneralIllness Time Seen by Provider: 11/19/17 16:15 - Allergies/Home Medications Allergies/Adverse Reactions: Allergies Allergy/AdvReac Type Severity Reaction Status Date / Time iodine Allergy Nausea Verified 11/19/17 16:10 Sulfa (Sulfonamide Allergy Itching Verified 11/19/17 16:10 Antibiotics) PMH/Surg Hx/FS Hx/Imm Hx Endocrine/Hematology History: Reports: Hx Diabetes Denies: Hx Anticoagulant Therapy, Hx Thyroid Disease Cardiovascular History: Reports: Hx Hypertension, Hx Rheumatic Fever - A CHILD Denies: Hx Congestive Heart Failure, Hx Deep Vein Thrombosis, Hx Myocardial Infarction, Hx Pacemaker/ICD Respiratory History: Reports: Other Respiratory Problems/Disorders - HX OF PNEUMONIA 10-12 YEARS AGO Denies: Hx Asthma, Hx Chronic Obstructive Pulmonary Disease (COPD), Hx Lung Cancer, Hx Pneumonia, Hx Pulmonary Embolism GI History: Reports: Hx Gastroesophageal Reflux Disease, Hx Ulcer, Other GI Disorders - DIFFICULTY SWALLOWING R/T SCAR TISSUE - NEEDS SOFT FOOD; DIVERTICULITIS Denies: Hx Gall Bladder Disease, Hx Gastrointestinal Bleed, Hx Urosepsis History: Reports: Other Problems/Disorders - STATED PAIN IN PROSTATE AREA Denies: Hx Dialysis, Hx Kidney Stones, Hx Renal Disease Musculoskeletal History: Reports: Hx Arthritis Sensory History: Reports: Hx Contacts or Glasses - READING GLASSES Opthamlomology History: Reports: Hx Contacts or Glasses - READING GLASSES Neurological History: Reports: Hx Transient Ischemic Attacks (TIA), Other Neuro Impairments/Disorders - FEELING OF PRESSURE IN HEAD Denies: Hx Dementia, Hx Migraine, Hx Seizures Psychiatric History: Reports: Hx Anxiety Denies: Hx Depression, Hx Panic Disorder, Hx Schizophrenia, Hx Bipolar Disorder - Cancer History Cancer Type, 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 TUMOR REMOVED FROM NEXT TO THE APPENDIX (BENIGN). APPY. UMBILICAL HERNIA REPAIR. COLONOSCOPY WITH POLYP REMOVAL Hx Anesthesia Reactions: No - Immunization History Date of Tetanus Vaccine: UTD Date of Influenza Vaccine: unk Infectious Disease History: No Infectious Disease History: Reports: Hx of Known/Suspected MRSA - R toe and abdomen, Hx Shingles Denies: Hx Clostridium Difficile, Hx Hepatitis, Hx Human Immunodeficiency Virus (HIV), Hx Tuberculosis, Hx Known/Suspected VRE, Hx Known/Suspected VRSA, History Other Infectious Disease, Traveled Outside the [place] in Last 30 Days - Family History Known Family History: Positive: Cardiac Disease, Hypertension, Other - [place] ( various) - Social History Alcohol Use: None Hx Substance Use: No Substance Use Type: Reports: Prescribed Hx Tobacco Use: No Smoking Status (MU): Never Smoked Tobacco Have You Smoked in the Last Year: No Review of Systems Constitutional: Negative Positive: Other - muscle aches All Other Systems Reviewed And Are Negative: Yes Physical Exam Triage Information Reviewed: Yes Vital Signs On Initial Exam: Initial Vitals Temp Pulse Resp BP Pulse Ox 99.2 F 116 24 128/94 98 11/19/17 16:07 11/19/17 16:07 11/19/17 16:07 11/19/17 16:07 11/19/17 16:07 Vital Signs Reviewed: Yes Appearance: Positive: Well-Appearing, No Pain Distress Skin: Positive: Warm, Skin Color Reflects Adequate Perfusion Head/Face: Positive: Normal Head/Face Inspection Eyes: Positive: EOMI ENT: Positive: Normal ENT inspection Neck: Positive: Supple, Nontender Respiratory/Lung Sounds: Positive: Clear to Auscultation, Breath Sounds Present Cardiovascular: Positive: RRR. Negative: Murmur Abdomen Description: Positive: Nontender. Negative: Distended Musculoskeletal: Positive: Limited @ - diffusely due to his fibromyalgia pains. Neurological: Positive: Sensory/Motor Intact, Alert, Oriented to Person Place, Time, CN Intact II-III Psychiatric: Positive: Normal - [place] Coma Scale Best Eye Response: 4 - Spontaneous Best Motor Response: 6 - Obeys Commands Best Verbal Response: 5 - Oriented Coma Scale Total: 15 Diagnostics - Vital Signs Vital Signs Temp Pulse Resp BP Pulse Ox 11/19/17 16:07 99.2 F 116 24 128/94 98 - Laboratory Lab Statement: Any lab studies that have been ordered have been reviewed, and results considered in the medical decision making process. Complex Multi-Symp Course/Dx Course Of Treatment: 52 yr old with fibromyalgia. Plan toradol per his request. DC home follow up with PMD. - Diagnoses Provider Diagnoses: Fibromyalgia Discharge - Sign-Out/Discharge Documenting (check all that apply): Patient Departure All imaging exams completed and their final reports reviewed: No Studies - Discharge Plan Condition: Good Disposition: HOME Patient Education Materials: Fibromyalgia (ED) Referrals: Joel Maurice NP [Primary Care Provider] - 2 Days - Billing Disposition and Condition Condition: GOOD Disposition: Home
== END 2017-11-19 16:51 | disposition home or self-care (01) ==
LOC: UCCORT 15:52
DX: M79.7 Fibromyalgia (principal); Z88.8 Allergy status to other drugs, medicaments and biological substances; E11.9 Type 2 diabetes mellitus without complications; I10 Essential (primary) hypertension
CPT/HCPCS: 96372; 99212; G0463; J1885

== ENCOUNTER 2017-12-13 15:57 | Emergency (ER) | payer OTHER ==
--- OUTSIDE RECORDS SUMMARY | 2017-12-13 16:09 | XMS REPORT ---
:1965 External Reference #:[id number] Author Organization [employer] Address [address] [address] Phone [phone] Care Team Providers Name Role Phone Joel Maurice NP Primary Care Physician Unavailable Payers Type Date Identification Numbers Payment Provider Subscriber Commercial Effective: Policy Number: [id number] Andres Castaneda 2015 Group Number: [id number] PayID: [id number] [place] [address] Problems Date Description Provider Status Onset: 08/27/2015 Low back pain Osvaldo Pearce M.D. 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 once weekly on Folic Acid 11/26/ Active Tablets 1mg 30tab take one Eduardo 2017 s capsule/table Freddie, t daily by MEmanuel mouth Aspercreme / Active Cream 4% apply twice Unknown W/Lidocaine 0000 daily to the rib as needed Alprazolam / Active Tablets 0.25mg Storm, 0000 wnt, NPC Atorvastatin / Active Tablets 40mg Storm, Calcium , NPC Oxycodone-Acet / Active Tablets 5-325mg Storm, aminophen , NPC Quetiapine / Active Tablets 25mg [place] Fumarate 0000 , MD Adán Lisinopril-Hyd / Active Tablets 10-12.5mg Storm, rochlorothiazi , de NPC Diazepam / Active Gel 10mg Storm, w, NPC Urea / Active Cream 40% Storm, w, NPC Meloxicam / Active Tablets 15mg Storm, , NPC Aripiprazole / Active Tablets 15mg Storm, , NPC Nystop / Active Powder [id number] Storm, 0000 t/GM , NPC Metformin HCL / Active Tablets 1000mg Storm, , NPC Duloxetine HCL / Active Caps DR 30mg Storm, 0000 Part , NPC Glipizide XL / Active Tablets 10mg Storm, 0000 ER 24HR , NPC Januvia / Active Tablets 100mg Storm, , NPC Duloxetine HCL 03/17/ Hx Caps DR 60mg 1 by mouth Unknown 2016 - Part every day 2017 Senna 03/17/ Hx Tablets 8.6mg 1 tab by Unknown 2017 - mouth as 2017 Lyrica 03/17/ Hx Capsules 150mg 1 by mouth Unknown 2017 - twice a day 2017 Hydroxyzine 03/17/ Hx Tablets 10mg 1 by mouth 3x Unknown HCL 2017 - a day 2017 Metformin HCL 03/17/ Hx Tablets 500mg 1 by mouth Unknown 2017 - twice a day 2017 Pantoprazole 03/17/ Hx Tablets 40mg 1 by mouth Unknown Sodium 2017 - DR every day 2017 No Active Hx Unknown Medications 2015 - 2015 Percocet 01/03/ Hx Tablets 5-325mg 20tab 1-2 tabs by I88.0 Katelynn 2016 - s mouth every 4 B. 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 / Hx Not sure what Unknown 0000 meds he is on Super B / Hx Tablets Unknown Complex/Vitami 0000 n C Vitamin D / Hx Capsules [id number] take one Unknown (Ergocalcifero 0000 - capsule by l) 11/26/ mouth once 2018 weekly Vitamin D3 / Hx Capsules 1000Unit 2 by mouth Unknown High Potency 0000 - every day 2017 Lactulose / Hx Solution 10GM/15ML 15ml by mouth Unknown 0000 - as needed for 2017 Baclofen / Hx Tablets 10mg 1 po at hs Unknown 0000 - 2017 Immunizations CPT Code Status Date Vaccine Lot # [id number] Given 10/18/2015 Influenza Virus Vaccine, Quadrivalent, Split, Preservative Free Vital Signs Date Vital Result Comment 11/26/2017 Height 72 inches 6'0" Weight 279.50 lb Heart Rate 87 /min BP Systolic 148 mmHg BP Diastolic 92 mmHg Pain Level 9 O2 % BldC Oximetry 97 % BMI (Body Mass Index) 37.9 kg/m2 06/09/2016 Height 72 inches 6'0" Weight 257.00 lb Heart Rate 99 /min BP Systolic Sitting 154 mmHg BP Diastolic Sitting 72 mmHg Respiratory Rate 18 /min Pain Level 9 O2 % BldC Oximetry 97 % BMI (Body Mass Index) 34.9 kg/m2 04/29/2016 Height 72 inches 6'0" Weight 255.00 lb per pt Heart Rate 103 /min BP Systolic Sitting 149 mmHg BP Diastolic Sitting 94 mmHg Respiratory Rate 18 /min O2 % BldC Oximetry 98 % BMI (Body Mass Index) 34.6 kg/m2 03/18/2016 Height 72 inches 6'0" Weight 263.00 lb per pt Heart Rate 98 /min BP Systolic Sitting 158 mmHg BP Diastolic Sitting 92 mmHg Respiratory Rate 16 /min O2 % BldC Oximetry 97 % BMI (Body Mass Index) 35.7 kg/m2 01/24/2016 Height 72 inches 6'0" Weight 260.00 lb Heart Rate 84 /min BP Systolic 150 mmHg BP Diastolic 100 mmHg Respiratory Rate 18 /min Body Temperature 98.7 F BMI (Body Mass Index) 35.3 kg/m2 01/04/2016 Height 72 inches 6'0" Weight 260.00 lb Heart Rate 90 /min BP Systolic 152 mmHg BP Diastolic 90 mmHg Respiratory Rate 18 /min Body Temperature 98.5 F BMI (Body Mass Index) 35.3 kg/m2 12/24/2015 Height 72 inches 6'0" Weight 260.00 lb Heart Rate 78 /min BP Systolic 160 mmHg BP Diastolic 90 mmHg Respiratory Rate 18 /min Body Temperature 98.5 F BMI (Body Mass Index) 35.3 kg/m2 12/03/2015 Height 72 inches 6'0" Weight 266.00 lb Heart Rate 81 /min BP Systolic 164 mmHg BP Diastolic 98 mmHg Respiratory Rate 14 /min O2 % BldC Oximetry 98 % BMI (Body Mass Index) 36.1 kg/m2 Neck Circumference in inches 17 11/21/2015 Height 72 inches 6'0" Weight 266.00 lb Heart Rate 84 /min BP Systolic Sitting 170 mmHg BP Diastolic Sitting 102 mmHg BMI (Body Mass Index) 36.1 kg/m2 11/16/2015 Height 72 inches 6'0" Weight 262.00 lb Heart Rate 76 /min BP Systolic 140 mmHg BP Diastolic 90 mmHg Respiratory Rate 18 /min Body Temperature 99.0 F BMI (Body Mass Index) 35.5 kg/m2 08/27/2015 Height 72 inches 6'0" Weight 262.00 lb Heart Rate 78 /min BP Systolic Sitting 126 mmHg BP Diastolic Sitting 80 mmHg Pain Level 6 BMI (Body Mass Index) 35.5 kg/m2 Results Test Date Test Result H/L Range Note Laboratory test 01/15/2016 Surgical Pathology SEE RESULT BELOW 1 finding Laboratory test 01/15/2016 Surgical Pathology SEE RESULT BELOW 2 finding 1 SEE RESULT BELOW Name: EDUARDO CASTANEDA : [address]: Hever Valera MD Acct: [id number] Unit: [id number] AGE: 50 Location: OR Re01/15/16 SEX: M Status: REG [facility] [place] SPEC: [id number] KG: 01/15/[address]: Hever Valera MD REQ: [id number] RECD: 01/15/16 STATUS: SOUT _ ORDERED: LEVEL V Addendum: An additional block of the appendiceal amputation site is submitted as slide H. The above rendered diagnosis remains unchanged. 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 See comment. -- Fibromatosis present at the unoriented inked radial and excision margin. -- Vermiform appendix with early acute serositis. Comment: The mass is poorly circumscribed and consists of a proliferation of bipolar spindled cells with plump open chromatin and inconspicuous single nucleoli. The cytoplasm has indistinct borders and there is abundant intervening collagen deposition. Only very rare mitotic figures are seen. No necrosis seen. A few scattered entrapped small lymphoid aggregates are noted. The spindle cell proliferation is present at multiple unoriented inked margins. The appendix appears entrapped with in the spindle cell proliferation and demonstrates focal superficial acute serositis though no definitive features of appendicitis is noted. The following immunohistochemical stains were performed with appropriate controls on block D. Vimentin diffuse positive Smooth muscle actin moderate diffuse positive ER negative Pankeratin negative C-KIT negative CONTINUED ON NEXT PAGE * ML=Testing performed at Main Lab DEPARTMENT OF PATHOLOGY, [address] [place] [address] Harsh Villegas M.D. Director [facility] # [id number] RUN DATE: 01/23/16 [facility] LAB LIVE PAGE 2 Patient: EDUARDO CASTANEDA [id number] (Continued) SPECIMEN COMMENTS (Continued) An additional immunohistochemical stain for beta Catenin is pending and will be reported in an addendum. The above stains support myofibroblastic differentiation. Dr. Ledesma has reviewed this case and concurs. This case was discussed with Dr. Valera on 01/22/2016 at approximately 2 PM PRE-OPERATIVE DIAGNOSIS Mesenteric mass GROSS DESCRIPTION The specimen is received in formalin labeled, Mesenteric Mass and Appendix, and consists of a 7.8 by up to 0.8 cm appendix with abundant attached mesoappendix. There is a 3.2 x 2.5 x 2.4 cm rubbery mass adjacent to the proximal appendiceal margin. The outer surface is shaggy brown-abdi. The cut surface is slightly whorled rubbery and mottled quintana-pink. The appendiceal serosa is predominantly smooth quintana-abdi with rare focal fibromembranous adhesions. The lumen averages 0.2 cm. The mucosa is glistening quintana-pink and the wall thickness measures up to 0.2 cm. The mass is inked and school admissions representative sections are submitted in cassettes A through G to include appendix in cassette A and mass in cassettes B through G. Signed (signature on file) Harsh Villegas MD 1431 END OF REPORT * ML=Testing performed at Main Lab DEPARTMENT OF PATHOLOGY, [address] [place] [address] Harsh Villegas M.D. Director [facility] # [id number] 2 SEE RESULT BELOW Name: EDUARDO CASTANEDA : [address]: Hever Valera MD Acct: [id number] Unit: [id number] AGE: 50 Location: OR Re01/15/16 SEX: M Status: [facility] [place] SPEC: [id number] KG: 01/15/16-[address] [facility] [address]: Hever Valera MD REQ: [id number] RECD: 01/15/16 STATUS: SOUT _ ORDERED: LEVEL V Addendum: An immunohistochemical stain for beta Catenin this performed with appropriate controls at [facility] and interpreted by [facility] pathology. The stain demonstrates diffuse positive staining in spindle cell elements and supports the previously rendered diagnosis of intra-abdominal fibromatosis. Addendum Signed (signature on file) Harsh Villegas MD 1435 Addendum: An additional block of the appendiceal amputation site is submitted as slide H. The above rendered diagnosis remains unchanged. 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 See comment. -- Fibromatosis present at the unoriented inked radial and excision margin. -- Vermiform appendix with early acute serositis. Comment: The mass is poorly circumscribed and consists of a proliferation of bipolar spindled cells with plump open chromatin and inconspicuous single nucleoli. The cytoplasm has indistinct borders and there is abundant intervening collagen deposition. Only very rare mitotic figures are seen. No necrosis seen. A few scattered entrapped small lymphoid aggregates are noted. The spindle cell proliferation is present at multiple unoriented inked margins. The appendix appears entrapped with in the spindle cell proliferation and demonstrates focal superficial acute serositis though no definitive features of appendicitis is noted. The following immunohistochemical stains were performed with CONTINUED ON NEXT PAGE * ML=Testing performed at Main Lab DEPARTMENT OF PATHOLOGY, [address] [place] [address] Harsh Villegas M.D. Director [facility] # [id number] RUN DATE: 01/24/16 [facility] LAB LIVE PAGE 2 Patient: EDUARDO CASTANEDA [id number] (Continued) SPECIMEN COMMENTS (Continued) appropriate controls on block D. Vimentin diffuse positive Smooth muscle actin moderate diffuse positive ER negative Pankeratin negative C-KIT negative An additional immunohistochemical stain for beta Catenin is pending and will be reported in an addendum. The above stains support myofibroblastic differentiation. Dr. Ledesma has reviewed this case and concurs. This case was discussed with Dr. Valera on 01/22/2016 at approximately 2 PM PRE-OPERATIVE DIAGNOSIS Mesenteric mass GROSS DESCRIPTION The specimen is received in formalin labeled, Mesenteric Mass and Appendix, and consists of a 7.8 by up to 0.8 cm appendix with abundant attached mesoappendix. There is a 3.2 x 2.5 x 2.4 cm rubbery mass adjacent to the proximal appendiceal margin. The outer surface is shaggy brown-abdi. The cut surface is slightly whorled rubbery and mottled quintana-pink. The appendiceal serosa is predominantly smooth quintana-abdi with rare focal fibromembranous adhesions. The lumen averages 0.2 cm. The mucosa is glistening quintana-pink and the wall thickness measures up to 0.2 cm. The mass is inked and school admissions representative sections are submitted in cassettes A through G to include appendix in cassette A and mass in cassettes B through G. Signed (signature on file) Harsh Villegas MD 1431 END OF REPORT * ML=Testing performed at Main Lab DEPARTMENT OF PATHOLOGY, [address] [place] [address] Harsh Villegas M.D. Director [facility] # [id number] Procedures Date CPT Code Description Status 03/05/2016 41303 Polysomnography Sleep Staging 4+ Parameters Completed 01/15/2016 25703 Laparoscopy, Surgical, Appendectomy Completed Encounters Type Date Location Provider CPT E/M Dx Office Visit 11/26/2017 Rheumatology Services Eduardo Frazier M.D. 01962 L40.50 8:00a Of Psychiatric Social Worker Supervisor Z79.899 M79.643 M25.559 M25.571 M25.561 Office Visit 06/09/2016 8:30a Pulmonology And Sleep Little Quinn, 04452 G47.33 [facility] JULISSA, RN, [facility] G47.14 G89.29 Office Visit 04/29/2016 8:00a Pulmonology And Sleep Little Quinn, 23481 G47.33 [facility] JULISSA, RN, [facility] G47.14 G89.29 Office Visit 03/18/2016 8:45a Pulmonology And Sleep Little Quinn, 64299 G47.33 [facility] JULISSA, RN, [facility] G47.14 F43.12 F51.05 Office Visit 12/24/2015 10:30a [facility] [place], [address] I88.0 [facility] FACS Office Visit 12/03/2015 8:00a [facility] [address] G47.9 [facility] E66.09 Z68.36 Z87.820 Office Visit 11/21/2015 1:00p [facility] Osvaldo Hdz, [address]11 R41.3 [facility] Virgilio Office Visit 11/16/2015 9:30a [facility] [place], [address] I88.0 [facility] Office Visit 08/27/2015 11:30a Neurosurgery Services Osvaldo Pearce M.D. 29501 M54.5 Of [facility] M54.2 Plan of Care Future Appointment(s):12/21/2017 4:20 pm - Eduardo Frazier M.D. at [facility]12/04/2017 12:30 pm - Eddie Colorado LCSW at [facility] Internal Medicine [facility]11/27/2017 12:30 pm - Eddie Colorado LCSW at [facility] Internal Medicine [facility]11/26/2017 - Eduardo Frazier M.D.L40.50 Arthropathic psoriasis, hsxdwyxtaeiV96.899 Other manager terminal (current) drug spzzaseA02.643 Pain in unspecified handM25.559 Pain in unspecified hipM25.571 Pain in right ankle and joints of right footFollow up:Follow up in 3 to 4 weeks or sooner if sghvcwO32.561 Pain in right knee
[2017-12-13 16:34] VITALS: BP 137/80
[2017-12-13] MEDS ORDERED: Ketorolac INJ* 60 MG/2 ML VIAL IM ONE (17:38)
--- NOTE | 2017-12-13 17:52 | UC ---
General HPI - HPI Summary HPI Summary: pt presents to the complaining of his chronic body aches including fibromyalgia. he is requesting a toradol shot. he states that he has a primary care physician that he sees regularly. - History of Current Complaint Chief Complaint: UCGeneralIllness Stated Complaint: BODY ACHES Hx Obtained From: Patient Onset/Duration: Gradual Onset Timing: Constant Onset Severity: Moderate Pain Intensity: 10 Associated Signs & Symptoms: Negative: Cough, Chest Pain, Diarrhea, Decreased Oral Intake, Diaphoresis, Fever, Headache, Nausea, Palpitations, Syncope, Trauma , Vomiting, Wheezing, Weakness - Allergy/Home Medications Allergies/Adverse Reactions: Allergies Allergy/AdvReac Type Severity Reaction Status Date / Time iodine Allergy Nausea Verified 12/13/17 16:34 Sulfa (Sulfonamide Allergy Itching Verified 12/13/17 16:34 Antibiotics) PMH/Surg Hx/FS Hx/Imm Hx Previously Healthy: Yes Endocrine History: Diabetes Cardiovascular History: Hypertension Other History Of: Negative For: HIV, Hepatitis B, Hepatitis C, Anticoagulant Therapy - Surgical History Surgical History: Yes Surgery Procedure, Year, and Place: 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 TUMOR REMOVED FROM NEXT TO THE APPENDIX (BENIGN). APPY. UMBILICAL HERNIA REPAIR. COLONOSCOPY WITH POLYP REMOVAL - Family History Known Family History: Positive: Cardiac Disease, Hypertension, Other - CA ( various) - Social History Alcohol Use: None Substance Use Type: Prescribed Smoking Status (MU): Never Smoked Tobacco Have You Smoked in the Last Year: No - Immunization History Most Recent Influenza Vaccination: [id number] Most Recent Tetanus Shot: 07/18/14 Vaccination Up to Date: Yes Review of Systems Constitutional: Negative Skin: Negative Eyes: Negative ENT: Negative Respiratory: Negative Cardiovascular: Negative Gastrointestinal: Negative Neurovascular: Negative Musculoskeletal: Myalgia Neurological: Negative Psychological: Negative Is Patient Immunocompromised?: No All Other Systems Reviewed And Are Negative: No Physical Exam Triage Information Reviewed: Yes Appearance: Well-Appearing, No Pain Distress, Well-Nourished Vital Signs: Initial Vital Signs Temp 98.5 F 12/13/17 16:30 Pulse 84 12/13/17 16:30 Resp 18 12/13/17 16:30 BP 137/80 12/13/17 16:30 Pulse Ox 96 12/13/17 16:30 Vital Signs Reviewed: Yes Eye Exam: Normal Eyes: Positive: Conjunctiva Clear ENT Exam: Normal ENT: Positive: Normal ENT inspection, Hearing grossly normal, Pharynx normal Dental Exam: Normal Neck exam: Normal Neck: Positive: Supple, Nontender Respiratory Exam: Normal Respiratory: Positive: Chest non-tender, Lungs clear, Normal breath sounds Cardiovascular Exam: Normal Cardiovascular: Positive: RRR Abdominal Exam: Normal Abdomen Description: Positive: Nontender, Soft Bowel Sounds: Positive: Present Musculoskeletal Exam: Normal Musculoskeletal: Positive: Strength Intact, ROM Intact Neurological Exam: Normal Neurological: Positive: Alert Psychological Exam: Normal Psychological: Positive: Normal Response To Family, Age Appropriate Behavior Skin Exam: Normal Course/Dx - Course Course Of Treatment: pt has chronic body aches including the diagnosis of fibromyalgia. he is requesting toradol. pt given 60mg im. he will be discharged with instructions to f/u with pcp this week. - Differential Dx - Multi-Symptom Provider Diagnoses: fibromyalgia Discharge - Sign-Out/Discharge Documenting (check all that apply): Patient Departure All imaging exams completed and their final reports reviewed: No Studies - Discharge Plan Condition: Stable Disposition: HOME Patient Education Materials: Fibromyalgia (ED) Referrals: Joel Maurice HEAVY TRUCK TECHNICIAN [Primary Care Provider] - Additional Instructions: take all medications as previously instructed. return if worse or any new symptoms. It is important to follow up with your primary care physician this week. - Billing Disposition and Condition Condition: STABLE Disposition: Home
== END 2017-12-13 18:04 | disposition home or self-care (01) ==
LOC: UCCORT 15:57
DX: M79.7 Fibromyalgia (principal); E11.9 Type 2 diabetes mellitus without complications; I10 Essential (primary) hypertension; Z88.8 Allergy status to other drugs, medicaments and biological substances; Z88.2 Allergy status to sulfonamides
CPT/HCPCS: 96372; 99212; G0463; J1885